=== PATIENT | male | born 1960 | race Caucasian/White ===

== ENCOUNTER 2016-06-07 11:15 | Inpatient (IN) | payer MEDICARE ==
[~2016-06-07] VITALS: Ht 182.9 cm; Wt 116.8 kg
--- NOTE | ~2016-06-07 | HEMODYNAMI ---
PATIENT:DEEJAY LAMB MEDICAL RECORD: [id number] : 56 LOCATION:[address] ADMISSION DATE: 06/07/16 Generatedon:06/08/201615:54 Patient name: DEEJAY LAMB Patient #: [id number] SSN: : 1960 Date of study: 06/08/2016 Page: Of Hemodynamic Procedure Report Patient Data Patient Demographics Procedure consent was obtained First Name: DEEJAY Gender: Male Last Name: ADONIS : 1960 [facility] Initial: RODRÍGUEZ Age: 55 year(s) Patient #: [id number] Race: Unknown Additional ID: [id number] Contact details Address: [address] [place] [address] State: [place] City: [facility] Zip code: [address] Past Medical History Allergies: No known allergies Admission Admission Data Admission Date: 06/07/2016 Admission Time: 11:15 Room #: 2105 Height (in.): 72 BSA: 2.37 (m2) Height (cm.): 182.88 BMI: 34.93 (kg/m2) Weight (lbs.): 257.55 Weight (kg.): 116.82 Lab Results Lab Result Date: 06/08/2016 Lab Result Time: 0:00 Biochemistry Name Units Result Min Max BUN mg/dl 33 --(----)-* 7 18 CK-MB ng/ml 0.9 --(*---)-- 0 3.6 Creatinine mg/dl 1.3 --(---*)-- 0.6 1.3 Creatinine l 56 --(*---)-- 21 215 Kinase Troponin l ng/ml 0.017 --(-*--)-- 0 0.06 CBC Name Units Result Min Max Hematocrit % 39.1 -*(----)-- 42 54 Hemoglobin g/dl 13.2 -*(----)-- 13.5 17.5 Procedure Procedure Types Cath Procedure Diagnostic Procedure LHC LHC w/Coronaries PCI Procedure Coronary Stent Initial Miscellaneous Procedures Moderate Sedation up to 15 minutes Procedure Description Procedure Date Procedure Date: 06/08/2016 Procedure Start Time: 15:39 Procedure End Time: 15:51 Procedure Staff Name Function Raul Ro MD Performing Physician Elis Avendaño RT Monitor Dru Muñoz RN Nurse Agatha Bob RT Scrub Procedure Data Cath Procedure Fluoroscopy Diagnostic fluoroscopy Total fluoroscopy Time: 2.7 time: 2.7 min min Diagnostic fluoroscopy Total fluoroscopy dose: 880 dose: 880 mGy mGy Contrast Material Contrast Material Type Amount (ml) Isovue 300 83 Entry Location Entry Primary Successful Side Size Upsize Upsize Entry Closure Succes sful Closure Location (Fr) 1 (Fr) 2 (Fr) Remarks Device Remarks Femoral Right 5 Fr 6 Fr Exoseal artery Short Estimated blood loss: 10 ml Diagnostic catheters Device Type Used For End Catheter Placement Cordis 5Fr Pigtail Procedure Catheter (MP) Cordis 5Fr JL 4.0 Procedure Catheter (MP) Cordis 5Fr 3DRC Catheter Procedure (MP) Procedure Complications No complications Procedure Medications Medication Administration Route Dosage Oxygen NC 2 l/min Heparin Flush Bag added to field 2 bags (1000units/500ml NS) 0.9% NaCl I.V. 100 ml/hr Lidocaine 2% added to field 20 Versed I.V. 1 mg Fentanyl I.V. 50 mcg Cardizem I.V. drip 15 mg/hr (125mg/125ml NS) Heparin Bolus I.V. 4000 units Hemodynamics Rest BSA: 2.37 (m2) HGB: 13.2 (g/dl) O2 Consumption: Estimated: 322.32 (ml/min) O2 Co nsumption indexed: Estimated:136 (ml/min/m) Pre Cath Intra NCS Post Cath Vital Signs Time Heart Resp SPO2 NIBP (mmHg) Rhythm Pain Sedation Rate (ipm) (%) Status Level (bpm) 15:28:52 113 39 97 119/81(102) A-Fib 0 (11) 10(A) , No pain 15:33:03 100 36 99 107/86(98) A-Fib 0 (11) 10(A) , No pain 15:37:11 87 25 98 112/89(102) A-Fib 0 (11) 10(A) , No pain 15:41:27 126 19 95 92/72(82) A-Fib 0 (11) 10(A) , No pain 15:45:31 80 18 96 96/85(91) NSR 0 (11) 10(A) , No pain 15:49:41 85 18 97 106/67(95) NSR 0 (11) 10(A) , No pain Medications Time Medication Route Dose Verified Delivered Reason Notes Effectiveness by by 15:29:15 Oxygen NC 2 Barak Barak Per physician l/min Steven Harris RN RN 15:29:26 Heparin Flush added 2 Barak Barak used for Bag to bags Steven Harris RN procedure (1000units/500ml RN NS) 15:29:37 0.9% NaCl I.V. 100 Barak Barak Per physician ml/hr Steven Harris RN RN 15:36:36 Lidocaine 2% added 20ml Barak Montoyay for local to vial Steven Harris RN anesthetic field RN 15:38:00 Versed I.V. 1 mg Raul Gonsales for sedation Jayjay Muñoz RN 15:38:05 Fentanyl I.V. 50 Raul Gonsales for sedation mcg Jayjay Muñoz RN 15:39:51 Cardizem I.V. 15 Raul Gonsales Per physician (125mg/125ml NS) drip mg/hr Jayjay Muñoz RN 15:43:51 Heparin Bolus I.V. 4000 Raul Gonsales for verifi ed units Jayjay Muñoz RN anticoagulation with dr ro Procedure Log Time Note 14:57:35 Patient Height : 182.88 cm 14:57:39 Patient Weight : 116.82 kg 15:03:39 Lab Result : Creatinine Kinase 56 l 15:03:39 Lab Result : Troponin l 0.017 ng/ml 15:03:39 Lab Result : CK-MB 0.9 ng/ml 15:03:39 Lab Result : BUN 33 mg/dl 15:03:39 Lab Result : Creatinine 1.3 mg/dl 15:03:39 Lab Result : Hematocrit 39.1 % 15:03:39 Lab Result : Hemoglobin 13.2 g/dl 15:13:02 Barak Harris RN sent for patient. Start room use. 15:13:03 Time tracking: Regular hours 15:13:07 Plan of Care:Hemodynamics will remain stable., Cardiac rhythm will remain stable., Comfort level will be maintained., Respiratory function will remain adequate., Patient/ family verbilizes understanding of procedure., Procedure tolerated without complication., Recovers from procedure without complications.. 15:20:00 Patient received from PCU to CCL 2 Alert and oriented. Tansferred to table in Supine position. 15:20:05 Warm blankets applied, and khanh hugger turned on for patient comfort. 15:20:05 Correct patient and procedure confirmed by team. 15:20:06 Signed procedure consent form obtained from patient. 15:20:07 ECG and BP/O2 sat monitors applied to patient. 15:20:08 Full Disclosure recording started 15:27:38 Vital chart was started 15:27:47 Rhythm: atrial fibrillation 15:28:33 H&P Date Dictated: 06/07/2016 Within 30 days and on chart.. 15:28:34 Pre-procedure instructions explained to patient. 15:28:35 Pre-op teaching completed and patient verbalized understanding. 15:28:36 Family in patients room. 15:28:38 Patient NPO since Midnight. 15:28:43 Patient allergic to No known allergies 15:28:45 Is the patient allergic to Iodine/contrast media? No. 15:28:59 Patient diabetic? Yes. 15:29:00 If diabetic: On Metformin? No 15:29:03 Previous problem with sedation/anesthesia? No ? 15:29:05 Snore? Yes 15:29:06 Sleep apnea? No 15:29:07 Deviated septum? No 15:29:07 Opens mouth fully? Yes 15:29:08 Sticks out tongue? Yes 15:29:10 Airway obstruction? No ? 15:29:14 Dentures? Yes Out 15:29:15 Oxygen 2 l/min NC was administered by Barak Harris RN; Per physician; 15:29:26 Heparin Flush Bag (1000units/500ml NS) 2 bags added to field was administered by Barak Harris RN; used for procedure; 15:29:28 Is patient on blood thinner?Yes 15:29:30 ACC The patient was administered the following blood thiners within the last 24 hours: ACCPlavix 15:29:34 Pre procedure: right dorsailis pedis pulse 1+ Palpable, but thready & weak; easily obliterated 15:29:36 Patient pain scale 0/10 ?. 15:29:37 0.9% NaCl 100 ml/hr I.V. was administered by Barak Harris RN; Per physician; 15::44 IV patent on arrival in right wrist with 0.9% NaCl at [facility] 15:29:51 Right groin area was prepped with chlora-prep and draped in sterile fashion 15::52 Alarms reviewed by R. N. 15::52 Sharps counted by scrub and verified by R.N. 15:30:20 Patient arrived on Cardizem at 5 mg/hr IV drip left wrist 15:30:32 Lab results completed and on chart. 15:30:35 Use device set Femoral Dx 15:30:36 Acist Syringe opened to sterile field. 15:30:37 Bag Decanter opened to sterile field. 15:30:37 Medline Cath Pack opened to sterile field. 15:30:37 Terumo 5Fr [place] Sheath opened to sterile field. 15:30:38 St Mic 260cm J .035 wire opened to sterile field. 15:30:39 Acist Hand Control opened to sterile field. 15:30:39 Acist Manifold opened to sterile field. 15:30:40 Diagnostic Infinity 5Fr Multipack catheter opened to sterile field. 15:30:40 Tegaderm 4 x 4 opened to sterile field. 15:32:49 Physician arrived 15:33:26 --------ALL STOP TIME OUT------ 15:33:27 Final Timeout: patient, procedure, and site verified with staff and physician. All members of the team are in agreement. 15:33:30 Right groin site verified by team. 15:33:47 Sedation plan: IV Moderate Sedation Versed, Fentanyl 15:36:36 Lidocaine 2% 20ml vial added to field was administered by Barak Harris RN; for local anesthetic; 15:37:17 Diagnostic Cath Status : Elective 15:38:00 Versed 1 mg I.V. was administered by Dru Muñoz RN; for sedation; 15:38:05 Fentanyl 50 mcg I.V. was administered by Dru Muñoz RN; for sedation; 15:39:25 Zero performed for pressure channel P1 15:39:31 Zero performed for pressure channel P1 15:39:43 Procedure started. 15:39:47 Local anesthetic to right femoral artery with Lidocaine 2% by Raul Ro MD.INITIAL ACCESS ONLY 15:39:51 Cardizem (125mg/125ml NS) 15 mg/hr I.V. drip was administered by Dru Muñoz RN; Per physician; 15:40:16 A 5 Fr sheath was inserted into the Right Femoral artery 15:40:40 A Cordis 5Fr Pigtail Catheter (MP) was advanced over the wire and used for Procedure. 15:40:43 LV angiography performed. 15:41:01 EF : 40 % 15:41:03 Catheter removed. 15:41:18 A Cordis 5Fr JL 4.0 Catheter (MP) was advanced over the wire and used for Procedure. 15:41:21 LCA angiography performed. 15:42:28 Catheter removed. 15:42:40 A Cordis 5Fr 3DRC Catheter (MP) was advanced over the wire and used for Procedure. 15:43:39 Catheter removed. 15:43:42 Terumo 6Fr [place] Sheath opened to sterile field. 15:43:51 Heparin Bolus 4000 units I.V. was administered by Dru Muñoz RN; for anticoagulation; verified with dr ro 15:43:58 Sheath upsized to a 6 Fr Short. 15:44:14 6 Fr XB 4 guide catheter was inserted over the wire 15:44:35 Cordis 6FR XB 4.0 guide catheter opened to sterile field. 15:44:38 Beltrán Whisper J 300cm 0.014 guide wire opened to sterile field. 15:44:39 ConsortiEXixCompak Inflation Kit opened to sterile field. 15:45:09 Whisper wire advanced. 15:47:19 Wire advanced across lesion. 15:47:51 Inflation Number: 1 A Biofreedom 3.0 x 28 stent was prepped and advanced across the Mid CX. The stent was deployed at 13 SANTIAGO for 0:10 (min:sec). 15:48:13 Cordis 6Fr Exoseal opened to sterile field. 15:48:20 Stent catheter was removed intact over wire. 15:48:21 Balloon removed over the wire. 15:48:21 Wire removed. 15:48:22 Guide catheter removed. 15:48:33 Sheath removed intact; hemostasis achieved with Exoseal to the Right Femoral artery. 15:49:16 Procedure ended.(Physican Out) 15:49:26 Fluoroscopy time 02.70 minutes. 15:49:38 Fluoroscopy dose: 880 mGy 15:49:38 Flurop Dose total: 880 15:49:43 Contrast amount:Isovue 300 83ml. 15:49:45 Sharps counted by scrub and verified by R.N. 15:49:53 Insertion/operative site no bleeding no hematoma. 15:49:55 Post Procedure Pulses reassessed and unchanged 15:50:09 Post-procedure physical assessment completed. ASA score P 2 - A patient with mild systemic disease as per Raul Ro MD. 15:50:12 Post procedure rhythm: sinus rhythm 15:50:15 Estimated blood loss: 10 ml 15:50:18 Post procedure instruction explained to patient.Patient verbalizes understanding. 15:50:37 Procedure type changed to Cath procedure, Diagnostic procedure, LHC, LHC w/Coronaries, PCI procedure, Coronary Stent Initial, Miscellaneous Procedures, Moderate Sedation up to 15 minutes 15:50:38 Procedure and supply charges have been captured, reviewed, submitted and are correct. 15:51:04 Procedure Complication : No complications 15:51:06 Vital chart was stopped 15:51:07 See physician's report for complete and final results. 15:51:11 Report given to [place]. 15:51:14 Patient transfered to [place] [facility] with Bed. 15:51:17 Procedure ended. 15:51:17 Full Disclosure recording stopped 15:51:19 End room use (Document Last) Intervention Summary Intervention Notes Time ActionType Lesion and Equipment Action# Pressure Duration Attributes Used 15:47:51 Place stent Mid CX Biofreedom 1 13 00:10 3.0 x 28 stent Device Usage Item Name Manufacture Quantity Catalog Hospital Part Current Minimal Lot# / Number Charge Number Stock Stock Serial# Code Acist Acist 1 35192 165352 047450 840339 20 Syringe Medical Systems Inc Bag Microtek 1 2002S [id number] 67205 007812 5 ImpulseFlyer Inc. Medline Cardinal 1 [id number] 798614 47158 899952 5 Cath Pack Health Terumo 5Fr Terumo 1 [id number] 180125 389106 877487 [address] Mic St Mic 1 [id number] 019032 678894 632419 30 260cm J .035 wire Acist Hand Acist 1 75799 964608 888625 775585 5 Control Medical Systems Inc Acist Acist 1 99421 322319 937203 140171 5 Manifold Medical Systems Inc Diagnostic Cardinal 1 [id number] 393602 36094 303042 30 Infinity Health 5Fr Multipack catheter Tegaderm 4 3M 1 1626W 039136 273753 948552 5 x 4 Cordis 5Fr Cardinal 1 208145 5 Pigtail Health Catheter (MP) Cordis 5Fr Cardinal 1 827860 5 JL 4.0 Health Catheter (MP) Cordis 5Fr Cardinal 1 [id number] 5 3DRC Health Catheter (MP) Terumo 6Fr Terumo 1 [id number] 103334 897499 831228 40 [place] Sheath Cordis 6FR Cardinal 1 [id number] 297396 670873 442254 2 XB 4.0 Health guide catheter Beltrán Beltrán 1 [id number] 939804 737270 684619 5 Whisper J Vascular 300cm 0.014 guide wire Merit Merit 1 [id number] 701727 328367 504248 15 MediciNova Medical Inflation Kit Biofreedom Biosensors 1 [id number] 019904 032443 5 [id number] 3.0 x 28 [place] SA stent Cordis 6Fr Cardinal 1 [id number] 383623 800529 235128 10 [facility] Smart Picture Tech Signature Audit [place] Stage Time Signature Unsigned Intra-Procedure 06/08/2016 Elis Avendaño 3:54:08 PM RT(R) Signatures Monitor : Elis Avendaño Signature : RT Date : Time : [facility] [address] [place] [address]
--- NOTE | ~2016-06-07 | HEMODYNAMI ---
PATIENT:DEEJAY LAMB MEDICAL RECORD: [id number] : 56 LOCATION:[address] ADMISSION DATE: 06/07/16 Generatedon:06/09/20168:47 Patient name: DEEJAY LAMB Patient #: [id number] SSN: : 1960 Date of study: 06/09/2016 Page: Of Hemodynamic Procedure Report Patient Data Patient Demographics Procedure consent was obtained First Name: DEEJAY Gender: Male Last Name: ADONIS : 1960 [facility] Initial: RODRÍGUEZ Age: 55 year(s) Patient #: [id number] Race: Additional ID: [id number] Contact details Address: [address] [place] [address] State: [place]: [facility] [place] code: [address] Past Medical History Allergies: No known allergies Admission Admission Data Admission Date: 06/07/2016 Admission Time: 11:15 Room #: 2105 Height (in.): 72 BSA: 2.37 (m2) Height (cm.): 182.88 BMI: 34.93 (kg/m2) Weight (lbs.): 257.55 Weight (kg.): 116.82 Lab Results Lab Result Date: 06/09/2016 Lab Result Time: 0:00 Biochemistry Name Units Result Min Max BUN mg/dl 27 --(----)-* 7 18 Creatinine mg/dl 1.2 --(---*)-- 0.6 1.3 CBC Name Units Result Min Max Hematocrit % 37.4 *-(----)-- 42 54 Hemoglobin g/dl 12.4 *-(----)-- 13.5 17.5 Procedure Procedure Types Cath Procedure PCI Procedure Coronary Stent Initial Miscellaneous Procedures Moderate Sedation up to 15 minutes Procedure Description Procedure Date Procedure Date: 06/09/2016 Procedure Start Time: 8:35 Procedure End Time: 8:46 Procedure Staff Name Function Raul Ro MD Performing Physician Joel Summers RT Scrub Barak Harris RN Nurse Lawanda Mcgee RT Monitor Procedure Data Cath Procedure Fluoroscopy Diagnostic fluoroscopy Total fluoroscopy Time: 1.2 time: 1.2 min min Diagnostic fluoroscopy Total fluoroscopy dose: 220 dose: 220 mGy mGy Contrast Material Contrast Material Type Amount (ml) Isovue 300 32 Entry Location Entry Primary Successful Side Size Upsize Upsize Entry Closure Succes sful Closure Location (Fr) 1 (Fr) 2 (Fr) Remarks Device Remarks Femoral Left 6 Fr Exoseal artery Short Estimated blood loss: 5 ml Procedure Complications No complications Procedure Medications Medication Administration Route Dosage Oxygen NC 2 l/min Heparin Flush Bag added to field 2 bags (1000units/500ml NS) 0.9% NaCl I.V. 100 ml/hr Plavix P.O. 75 mg Fentanyl I.V. 50 mcg Versed I.V. 1 mg Heparin Bolus I.V. 4000 units Hemodynamics Rest BSA: 2.37 (m2) HGB: 12.4 (g/dl) O2 Consumption: Estimated: 294.37 (ml/min) O2 Co nsumption indexed: Estimated:124.21 (ml/min/m) Heart Rate: 86 (bpm) Snapshots Pre Cath Intra NCS Post Cath Vital Signs Time Heart Resp SPO2 etCO2 [id number] NIBP (mmHg) Rhythm Pain Sedation Rate (ipm) (%) (mmHg) (mmHg) Status Level (bpm) 8:23:41 86 19 98 0 0 152/112(137) NSR 0 (11) 10(A) , No pain 8:28:09 80 19 98 0 0 150/106(128) NSR 0 (11) 10(A) , No pain 8:32:34 83 17 96 0 0 139/98(114) NSR 0 (11) 10(A) , No pain 8:36:56 88 18 91 0 0 134/86(111) NSR 0 (11) 9(A) , No pain 8:41:16 81 17 90 0 0 134/95(103) NSR 0 (11) 9(A) , No pain 8:45:34 84 16 90 0 0 130/87(105) NSR 0 (11) 9(A) , No pain Medications Time Medication Route Dose Verified Delivered Reason Notes Effectiveness by by 8:22:42 Oxygen NC 2 Barak Cancino Per physician l/min Steven Harris RN RN 8:22:50 Heparin Flush added 2 Barak Cancino used for Bag to bags Steven Harris RN procedure (1000units/500ml field RN NS) 8:23:03 0.9% NaCl I.V. 100 Barak Cancino Per physician ml/hr Steven Harris RN RN 8:24:35 Plavix P.O. 75 mg Barak Cancino for Steven Harris RN antiplatelet RN therapy 8:33:25 Fentanyl I.V. 50 Barak Barak for sedation mcg Steven Harris RN RN 8:33:32 Versed I.V. 1 mg Barak Cancino for sedation Steven Harris RN RN 8:36:58 Heparin Bolus I.V. 4000 Barak Cancino for units Steven Harris RN anticoagulation drop tester Log Time Note 7:56:28 Patient Height : 72 cm 7:56:28 Patient Weight : 257.55 kg 8:00:29 Joel Bluenatalia RT(R) sent for patient. Start room use. 8:01:36 Time tracking: Regular hours 8:01:40 Plan of Care:Hemodynamics will remain stable., Cardiac rhythm will remain stable., Comfort level will be maintained., Respiratory function will remain adequate., Patient/ family verbilizes understanding of procedure., Procedure tolerated without complication., Recovers from procedure without complications.. 8:11:58 Patient received from PCU to CCL 1 Alert and oriented. Tansferred to table in Supine position. 8:12:00 Warm blankets applied, and khanh hugger turned on for patient comfort. 8:12:00 Correct patient and procedure confirmed by team. 8:12:01 Signed procedure consent form obtained from patient. 8:12:02 ECG and BP/O2 sat monitors applied to patient. 8:12:03 Full Disclosure recording started 8:22:18 Vital chart was started 8:22:42 Oxygen 2 l/min NC was administered by Barak Harris RN; Per physician; 8:22:50 Heparin Flush Bag (1000units/500ml NS) 2 bags added to field was administered by Barak Harris RN; used for procedure; 8:23:03 0.9% NaCl 100 ml/hr I.V. was administered by Barak Harris RN; Per physician; 8:23:38 Baseline sample Acquired. 8:23:41 Rhythm: sinus rhythm 8:23:48 H&P Date Dictated: 06/08/2016 Within 30 days and on chart.. 8:23:49 Pre-procedure instructions explained to patient. 8:23:50 Pre-op teaching completed and patient verbalized understanding. 8:23:51 Family in waiting room. 8:23:53 Patient NPO since Midnight. 8:23:59 Is the patient allergic to Iodine/contrast media? No. 8:24:00 Is patient on blood thinner?Yes 8:24:02 ACC The patient was administered the following blood thiners within the last 24 hours: ACCPlavix 8:24:35 Plavix 75 mg P.O. was administered by Barak Harris RN; for antiplatelet therapy; 8:24:36 Patient diabetic? Yes. 8:25:12 If diabetic: On Metformin? No 8:25:16 Previous problem with sedation/anesthesia? No ? 8:25:17 Snore? Yes 8:25:18 Sleep apnea? No 8:25:19 Deviated septum? No 8:25:20 Opens mouth fully? Yes 8:25:20 Sticks out tongue? Yes 8:25:22 Airway obstruction? No ? 8:25:25 Dentures? Yes Out 8:25:29 Pre procedure: left dorsailis pedis pulse 1+ Palpable, but thready & weak; easily obliterated 8:25:31 Patient pain scale 0/10 ?. 8:25:42 IV patent on arrival in right wrist with 0.9% NaCl at KVO. 8:25:51 Lab results completed and on chart. 8:27:30 Lab Result : BUN 27 mg/dl 8:27:30 Lab Result : Creatinine 1.2 mg/dl 8:27:30 Lab Result : Hemoglobin 12.4 g/dl 8:27:30 Lab Result : Hematocrit 37.4 % 8:27:37 Left groin area was prepped with chlora-prep and draped in sterile fashion 8:27:38 Alarms reviewed by R. N. 8:27:39 Sharps counted by scrub and verified by R.N. 8:27:42 Use device set Femoral PCI 8:27:43 Acist Syringe opened to sterile field. 8:27:44 Acist Hand Control opened to sterile field. 8:27:44 Bag Decanter opened to sterile field. 8:27:44 Medline Cath Pack opened to sterile field. 8:27:45 Terumo 6Fr Somerset Sheath opened to sterile field. 8:27:45 St Mic 260cm J .035 wire opened to sterile field. 8:27:45 Merit BasixCompak Inflation Kit opened to sterile field. 8:27:46 Acist Manifold opened to sterile field. 8:27:46 Tegaderm 4 x 4 opened to sterile field. 8:29:36 Physician paged 8:30:43 Zero performed for pressure channel P1 8:31:11 Final Timeout: patient, procedure, and site verified with staff and physician. All members of the team are in agreement. 8:31:14 Left groin site verified by team. 8:31:17 Physical assessment completed. ASA score P 2 - A patient with mild systemic disease as per Raul Ro MD. 8:31:37 Sedation plan: IV Moderate Sedation Versed, Fentanyl 8:33:25 Fentanyl 50 mcg I.V. was administered by Barak Harris RN; for sedation; 8:33:32 Versed 1 mg I.V. was administered by Barak Harris RN; for sedation; 8:35:13 Procedure started. 8:35:17 Local anesthetic to left femerol artery with Lidocaine 2% by Raul Ro MD.INITIAL ACCESS ONLY 8:36:09 A 6 Fr Short sheath was inserted into the Left Femoral artery 8:36:22 6 Fr AR 2.0 guide catheter was inserted over the wire 8:36:58 Heparin Bolus 4000 units I.V. was administered by Barak Harris RN; for anticoagulation; 8:37:37 Whisper wire advanced. 8:39:50 Inflation Number: 1 A Biofreedom 3.0 x 28 stent was prepped and advanced across the Mid RCA. The stent was deployed at 13 SANTIAGO for 0:11 (min:sec). 8:40:03 Stent catheter was removed intact over wire. 8:40:04 Wire removed. 8:40:04 Guide catheter removed. 8:40:16 Cordis 6Fr Exoseal opened to sterile field. 8:40:23 Sheath removed intact; hemostasis achieved with Exoseal to the Left Femoral artery. 8:40:25 Procedure ended.(Physican Out) 8:40:42 Fluoroscopy time 01.20 minutes. 8:40:46 Flurop Dose total: 220 8:40:46 Fluoroscopy dose: 220 mGy 8:40:50 Contrast amount:Isovue 300 32ml. 8:40:51 Sharps counted by scrub and verified by R.N. 8:40:57 Insertion/operative site no bleeding no hematoma. 8:41:00 Post-op/insertion site Left Femoral artery dressed using a 4 x 4 and Tegaderm. 8:43:10 Post left femerol artery:stable, clean and dry 8:43:12 Post Procedure Pulses reassessed and unchanged 8:43:14 Post-procedure physical assessment completed. ASA score P 2 - A patient with mild systemic disease as per Raul Ro MD. 8:43:17 Post procedure rhythm: unchanged. 8:43:19 Estimated blood loss: 5 ml 8:43:21 Post procedure instruction explained to patient.Patient verbalizes understanding. 8:43:22 Patient needs reinforcement of post procedure teaching. 8:43:29 Procedure type changed to Cath procedure, PCI procedure, Coronary Stent Initial, Miscellaneous Procedures, Moderate Sedation up to 15 minutes 8:43:34 Procedure Complication : No complications 8:43:36 See physician's report for complete and final results. 8:44:12 Medtronic Launcher 6Fr AR 2.0 guide catheter opened to sterile field. 8:44:40 Beltrán Whisper J 300cm 0.014 guide wire opened to sterile field. 8:44:59 Procedure and supply charges have been captured, reviewed, submitted and are correct. 8:45:40 Vital chart was stopped 8:45:42 Report given to PCU. 8:45:50 Patient transfered to PCU with Bed. 8:46:04 Procedure ended. 8:46:04 Full Disclosure recording stopped 8:46:08 End room use (Document Last) Intervention Summary Intervention Notes Time ActionType Lesion and Equipment Action# Pressure Duration Attributes Used 8:39:50 Place stent Mid RCA Biofreedom 1 13 00:11 3.0 x 28 stent Device Usage Item Name Manufacture Quantity Catalog Hospital Part Current Minimal Lot# / Number Charge Number Stock Stock Serial# Code Acist Acist 1 40637 743776 415981 641084 20 Syringe Medical Systems Inc Acist Hand Acist 1 29438 658099 440123 199259 5 Control Grockit Inc Bag Microtek 1 2002S 314529 91220 827509 5 DecTok3n Medical Inc. Medline Cardinal 1 [id number] 556794 64523 752911 5 Cath Pack Health Terumo 6Fr Terumo 1 [id number] 980392 175705 716873 [address] Mic 1 110584 077935 850424 228355 30 260cm J .035 wire Merit Merit 1 [id number] 621631 900305 942940 15 BasixCompak Medical Inflation Kit Acist Acist 1 32998 242923 195212 973994 5 Sckipio Technologies Medical Systems Inc Tegaderm 4 3M 1 1626W 578499 801369 272947 5 x 4 Biofreedom Biosensors 1 [id number] 577045 260190 5 [id number] 3.0 x 28 Europe SA stent Cordis 6Fr Cardinal 1 EX600 467682 371934 582544 10 Exoseal Health Medtronic Medtronic 1 [id number] 404813 42202 058544 1 Launcher 6Fr AR 2.0 guide catheter Beltrán Beltrán 1 [id number] 203410 401254 127497 5 [facility] Vascular 300cm 0.014 guide wire Signature Audit [place] Stage Time Signature Unsigned Intra-Procedure 06/09/2016 Lawanda 8:47:02 AM Counts RT(R) Signatures Monitor : Lawanda Signature : Counts RT Date : Time : [place] [id number] [place] [address]
--- NOTE | 2016-06-07 11:40 | NUR ---
PT RECEIVED TO ROOM 2105, VIA WHEELCHAIR, PT ORIENTED TO ROOM AND CALL LIGHT. WILL ASSESS PT AND START PLAN OF CARE.
[2016-06-07 12:14] VITALS: BP 112/81
[2016-06-07 12:18] LABS: BASOPHILS 0.1 % (0-2); EOSINOPHILS 0 % (0-7); HEMATOCRIT 42.9 % (42.0-54.0); HEMOGLOBIN 14.8 g/dL (13.5-17.5); IMMATURE GRANULOCYTES 1.2 % (0-5); LYMPHOCYTES 11.5 % (15-50); MCH 30.1 pg (26.0-34.0); MCHC 34.5 g/dL (31.0-37.0); MCV 87.2 fL (80.0-100.0); MEAN PLATELET VOLUME 12.2 fL (7.4-10.4); MONOCYTES 4.8 % (2-11); NEUTROPHILS 82.4 % (40-80); PLATELET COUNT 184 10x3/uL (130-400); RBC 4.92 10x6/uL (4.20-6.10); RDW 13.4 % (11.5-14.5); WBC 19.6 10x3/uL (4.8-10.8)
[2016-06-07 12:24] LABS: KETONE - SERUM SMALL mg/dL (NEGATIVE)
--- NOTE | 2016-06-07 12:28 | NUR ---
IV ACCESS-22 GAUGE INSERTED IN RIGHT HAND FOR ACCESS. USHA THOMPSON RN
[2016-06-07 12:44] LABS: ALBUMIN 2.2 g/dL (3.4-5.0); ALKALINE PHOSPHATASE 185 U/L (46-116); ALT (SGPT) 84 U/L (10-68); BILIRUBIN - TOTAL 1.66 mg/dL (0.2-1.3); CALC OSMOLALITY 279 mosm/kg (275-300); CALCIUM 8.8 mg/dL (8.5-10.1); CARBON DIOXIDE 16.4 mmol/L (21.0-32.0); CHLORIDE - SERUM 89 mmol/L (98-107); CREATININE - SERUM 1.6 mg/dL (0.6-1.3); POTASSIUM - SERUM 3.9 mmol/L (3.5-5.1); PROTEIN - SERUM 7.8 g/dL (6.4-8.2); SODIUM 126 mmol/L (136-145); THYROID STIMULATING HORMONE 1.85 uIU/mL (0.36-3.74); UREA NITROGEN 36 mg/dL (7-18); eGFR NON AFRICAN AMERICAN 48 mL/min (90-120)
[2016-06-07 12:49] LABS: GLUCOSE 435 mg/dL (74-106)
--- NOTE | 2016-06-07 13:36 | NUR ---
CALLED DR. CUNNINGHAM'S OFFICE AND SPOKE WITH BHAVIN, GAVE HER THE RESULTS FROM THE ABG'S AND CRITICAL GLUCOSE OF 465. WAITING ON HER TO CALL BACK WITH NEW ORDERS.
--- NOTE | 2016-06-07 13:52 | NUR ---
RECEIVED CALL BACK FROM BHAVIN CUNNINGHAM'S NURSE. NEW ORDER FOR 10UNITS OF INSULIN ONE TIME ORDER.
--- NOTE | 2016-06-07 14:13 | NUR ---
ADMINISTERED 10 UNITS OF HUMALOG ONE TIME DOSE FOR BLOOD SUGAR OF 458 PER 'S ORDER. PT IN BED, DENIES ANY NEEDS AT THIS TIME. CALL LIGHT IN REACH, NAD NOTED, WILL CONTINUE TO MONITOR.
[2016-06-07 14:15] VITALS: BP 112/81; BMI 34.9
--- NOTE | 2016-06-07 14:53 | NUR ---
CALLED [employer] AND ASKED THEM FOR AN SCD MACHINE FOR ROOM 2104.
[2016-06-07 15:06] LABS: APPEARANCE CLEAR (CLEAR); BILIRUBIN NEGATIVE (NEGATIVE); COLOR YELLOW (YELLOW); GLUCOSE 1000 mg/dL (NEGATIVE); KETONE MODERATE mg/dL (NEGATIVE); LEUKOCYTE ESTERASE TRACE (NEGATIVE); NITRITE NEGATIVE (NEGATIVE); PROTEIN TRACE mg/dL (NEGATIVE); SPECIFIC GRAVITY 1.015 (1.005-1.020); UROBILINOGEN NORMAL (NORMAL)
[2016-06-07 15:07] LABS: BACTERIA MANY /hpf (NONE SEEN); WHITE CELLS - URINE >50 /hpf (0-5)
[2016-06-07 15:54] VITALS: BP 120/58
[2016-06-07 16:48] VITALS: BP 128/65
[2016-06-07 20:00] VITALS: BP 135/84
--- NOTE | 2016-06-07 21:03 | NUR ---
PT LYING IN BED, AWAKE, ALERT, ORIENTED, DENIES ANY ACUTE NEEDS. PT IS AWARE THAT HE IS NOT ALLOWED TO HAVE ANY FREE WATER AT THIS TIME. WILL MONITOR HIS INPUT CLOSELY. BED LOW, CALL LIGHT IN REACH, SIDE RAILS X 2, HOB 30 DEGREES.
--- NOTE | 2016-06-07 23:34 | NUR ---
PT REQUESTING SOMETHING FOR SLEEP, HE IS HAVING A DIFFICULT TIME TRYING TO SLEEP HERE. HAVE PAGED DR. BARRY JIRA DEVELOPER FOR DR. CUNNINGHAM.
[2016-06-08] VITALS: BP 126/78
--- NOTE | 2016-06-08 00:40 | NUR ---
DR. BARRY RETURNED CALL, DID AUTHORIZE TIZANADINE 2MG PO Q HS PRN PER PATIENT REQUEST. PT STATES HE DID TAKE TIZANADINE TO HELP HIM SLEEP BEFORE. CONTINUE TO MONITOR CLOSELY.
[2016-06-08 04:00] VITALS: BP 130/80
[2016-06-08 04:25] LABS: BASOPHILS 0.3 % (0-2); EOSINOPHILS 0.2 % (0-7); HEMATOCRIT 39.1 % (42.0-54.0); HEMOGLOBIN 13.2 g/dL (13.5-17.5); IMMATURE GRANULOCYTES 1.3 % (0-5); LYMPHOCYTES 8.6 % (15-50); MCH 29.3 pg (26.0-34.0); MCHC 33.8 g/dL (31.0-37.0); MCV 86.9 fL (80.0-100.0); MEAN PLATELET VOLUME 11.7 fL (7.4-10.4); MONOCYTES 11.7 % (2-11); NEUTROPHILS 77.9 % (40-80); PLATELET COUNT 173 10x3/uL (130-400); RDW 13.3 % (11.5-14.5)
[2016-06-08 04:28] LABS: WBC 14.6 10x3/uL (4.8-10.8)
[2016-06-08 04:51] LABS: ANION GAP 16.4 mmol/L (8-16); CALCIUM 7.7 mg/dL (8.5-10.1); CARBON DIOXIDE 22.3 mmol/L (21.0-32.0); CREATININE - SERUM 1.3 mg/dL (0.6-1.3); POTASSIUM - SERUM 3.7 mmol/L (3.5-5.1)
[2016-06-08 08:00] VITALS: BP 116/62
--- NOTE | 2016-06-08 10:51 | NUR ---
ALERT AND ORIENTED X4. EKG COMPLETE ON CHART. INITIATE TELEMETRY MONITORING. 163bpm UNCONTROLLED A-FIB WITH RVR. DENIES PAIN. DENIES SOB. BATH AND LINEN CHANGE COMPLETE. CONTINUE PLAN OF CARE AND SAFETY PRECAUTIONS.
[2016-06-08 12:00] VITALS: BP 100/59
--- NOTE | 2016-06-08 12:11 | NUR ---
ALERT AND ORIENTED X4. DENIES PAIN OR SOB. SECOND IV SITED FOR CARDIZEM DRIP @ 5mL/HR PER . SECOND IV 20G RT WRIST. SUCCESSFUL X3 ATTEMPTS. 155bpm UNCONTROLLED A-FIB WITH RVR ON TELEMETRY. CARDIOLOGY CONSULTED PER . DENIES ANY NEEDS. CONTINUE PLAN OF CARE AND SAFETY PRECAUTIONS.
--- NOTE | 2016-06-08 12:31 | NUR ---
IV ACCESS-20 GAUGE INSERTED IN RIGHT WRIST FOR ACCESS. USHA THOMPSON RN
[2016-06-08 13:14] LABS: BASOPHILS 0.5 % (0-2); EOSINOPHILS 0.3 % (0-7); HEMATOCRIT 44.3 % (42.0-54.0); HEMOGLOBIN 15.3 g/dL (13.5-17.5); IMMATURE GRANULOCYTES 2.7 % (0-5); LYMPHOCYTES 12.9 % (15-50); MCH 29.8 pg (26.0-34.0); MCHC 34.5 g/dL (31.0-37.0); MCV 86.4 fL (80.0-100.0); MEAN PLATELET VOLUME 11.5 fL (7.4-10.4); MONOCYTES 11.2 % (2-11); NEUTROPHILS 72.4 % (40-80); RBC 5.13 10x6/uL (4.20-6.10); RDW 13.3 % (11.5-14.5)
[2016-06-08 13:15] VITALS: Ht 182.9 cm; Wt 116.8 kg
[2016-06-08 13:17] LABS: PLATELET COUNT 240 10x3/uL (130-400); WBC 19.2 10x3/uL (4.8-10.8)
[2016-06-08 14:10] LABS: CALC OSMOLALITY 279 mosm/kg (275-300); CALCIUM 8.2 mg/dL (8.5-10.1); CARBON DIOXIDE 21.7 mmol/L (21.0-32.0); CHLORIDE - SERUM 97 mmol/L (98-107); CREATININE - SERUM 1.3 mg/dL (0.6-1.3); GLUCOSE 240 mg/dL (74-106); POTASSIUM - SERUM 3.4 mmol/L (3.5-5.1); SODIUM 133 mmol/L (136-145); UREA NITROGEN 29 mg/dL (7-18); eGFR NON AFRICAN AMERICAN 60 mL/min (90-120)
[2016-06-08 16:00] VITALS: BP 105/66
--- NOTE | 2016-06-08 16:27 | NUR ---
RETURN TO ROOM VIA BED. BP-105/66, O2 SAT-99% 3L, P-83 SINUS RHYTHM ON TELEMETRY. RT GROIN DRESSING CLEAN DRY INTACT. NO HEMATOMA. NO BLEEDING. REMAIN FLAT UNTIL 1999 TONIGHT. PULSES PALPABLE BILATERALLY. DENIES PAIN. CARDIZEM DRIP INCREASES DURING LANDSCAPE PAINTER TO 15ml/HR. CONVERT FROM UNCONTROLLED A-FIB WITH RVR TO SINUS RHYTHM BEFORE RETURNING TO ROOM. AFTER SECOND DOSE OF SOTALOL ADMINISTERED THAT IS SCEDULED AT 2100 06/08/16, DISCONTINUE CARDIZEM DRIP PER . PLAN TO RETURN TO LANDSCAPE PAINTER TOMORROW. CONTINUE PLAN OF CARE AND SAFETY PRECAUTIONS.
--- NOTE | 2016-06-08 18:18 | NUR ---
ALERT AND ORIENTED X4. REMAINS FLAT POST CATH ANOTHER 2HRS. CONSENT FOR CATH 06/09/16 SIGNED ON CHART. BP-99/66, P-82bpm SINUS RHYTHM. DENIES ANY NEEDS. RT GROIN DRESSING CLEAN DRY INTACT. FREE FROM BLEEDING. NO HEMATOMA. PULSES PALPABLE BILATERALLY. CONTINUE PLAN OF CARE. PREPARE HAND OFF REPORT. BED LOCKED AND LOW. CALL LIGHT IN REACH. TWO SIDERAILS UP.
[2016-06-08 20:00] VITALS: BP 109/48
--- NOTE | 2016-06-08 21:46 | NUR ---
IV DILTIAZEM STOPPED AND D/C'D PER ORDER. PT HAS RECEIVED HIS 21:00 BETAPACE. WE DISCUSSED S/S OF DYSRHYTHMIA, AND PT AGREES TO NOTIFY ME WITH ANY CHANGES. WILL CONTINUE TO MONITOR CLOSELY.
[2016-06-09] VITALS: BP 95/51
[2016-06-09 04:00] VITALS: BP 108/95
--- NOTE | 2016-06-09 04:08 | NUR ---
PT LYING IN BED ON LEFT SIDE, EYES CLOSED, RESPIRATIONS EVEN AND UNLABORED. PT EASILY ROUSABLE TO VERBAL STIMULI. CONTINUE TO MONITOR CLOSELY. BED LOW, CALL LIGHT IN REACH, SIDE RAILS X 2, HOB 20 DEGREE.
[2016-06-09 05:13] LABS: BASOPHILS 0.3 % (0-2); EOSINOPHILS 0.6 % (0-7); HEMATOCRIT 37.4 % (42.0-54.0); HEMOGLOBIN 12.4 g/dL (13.5-17.5); IMMATURE GRANULOCYTES 3.8 % (0-5); LYMPHOCYTES 15.4 % (15-50); MCH 29.2 pg (26.0-34.0); MCHC 33.2 g/dL (31.0-37.0); MEAN PLATELET VOLUME 11.8 fL (7.4-10.4); MONOCYTES 10.7 % (2-11); NEUTROPHILS 69.2 % (40-80); PLATELET COUNT 205 10x3/uL (130-400); RBC 4.25 10x6/uL (4.20-6.10); RDW 13.6 % (11.5-14.5)
[2016-06-09 05:24] LABS: WBC 10.8 10x3/uL (4.8-10.8)
[2016-06-09 05:40] LABS: ALBUMIN 1.9 g/dL (3.4-5.0); BILIRUBIN - TOTAL 1.17 mg/dL (0.2-1.3); CARBON DIOXIDE 23.9 mmol/L (21.0-32.0); CREATININE - SERUM 1.2 mg/dL (0.6-1.3); MAGNESIUM - SERUM 2.1 mg/dL (1.8-2.4); POTASSIUM - SERUM 3.9 mmol/L (3.5-5.1); PROTEIN - SERUM 6.4 g/dL (6.4-8.2)
--- NOTE | 2016-06-09 08:09 | NUR ---
AM ROUNDS - 709 - PT IN BED ON BACK. RECONNECTED NS WITH 10MEQ K+ TO RIGHT HAND. PLACE 02 WITH 2 L VIA NC BACK ON. RIGHT WRIST, SL. MONITOR SHOWING SR, HR 81. WILL CONTINUE TO MONITOR. 804 - PREOP PT FOR HEART CATH. 809- PT GOING FOR HEART CATH VIA BED.
[2016-06-09 08:16] VITALS: BP 140/92
--- NOTE | 2016-06-09 09:05 | NUR ---
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 PPP AND STRONG. LAYING FALT X 4 HOURS. IV OF NS INFUSING TO RIGHT ARM AT 100 CC/HR. PLACED BACK ON HEART MONITOR, ON O2 AT 2L PER NC. DENIES NEEDS. WILL MONITOR.
[2016-06-09 12:32] VITALS: BP 98/62
--- NOTE | 2016-06-09 12:58 | NUR ---
SET PT IN IN THE BED ABOUT 15 DEGREES. DRESSING FRON HEART CATH IN LEFT GROIN IS INTACT AND NO VISIBLE DRAINAGE. WILL CONTINUE TO MONITOR.
--- NOTE | 2016-06-09 16:28 | NUR ---
Patient Name: DEEJAY LAMB Admission Status: Urgent Accout number: [id number] Admission Date: 06-07-2016 : 1960 Admission Diagnosis:ANGINA PECTORIS, UNSPECIFIED Attending: DUNIA Current LOS: 2 Anticipated DC Date: 06-09-2016 Planned Disposition: Home Primary Insurance: MEDICARE A & B Discharge Planning Comments: * Is the patient Alert and Oriented? Yes 0 * How many steps to enter\exit or inside your home? 4 0 * PCP DR. CUNNINGHAM 0 * Pharmacy [facility]. 0 * Preadmission Environment Home Alone 0 * ADLs Independent 0 * Equipment None 0 * Other Equipment NO MEDICAL EQUIPMENT PROVIDER PREFERENCE 0 * List name and contact numbers for known caregivers / representatives who currently or will assist patient after discharge: MAYRA LAMB, SPOUSE, 0 * Community resources currently utilized None 0 * Please name any agencies selected above. NONE 0 * Additional services required to return to the preadmission environment? No 0 * Can the patient safely return to the preadmission environment? Yes 0 * Has this patient been hospitalized within the prior 30 days at any hospital? No 0 CM MET WITH PT IN ROOM TO DISCUSS DISCHARGE PLANNING AND NEEDS. PT REPORTS LIVING AT HOME INDEPENDENTLY AND ALONE. PT HAS NO MEDICAL EQUIPMENT AND NO OUTSIDE SERVICES ASSISTING IN THE HOME. CM DISCUSSED AVAILABILITY OF HOME HEALTH, REHAB SERVICES AND MEDICAL EQUIPMENT. PT DENIES DISCHARGE NEEDS, REPORTS HE WILL BE DRIVING HIMSELF HOME AT DISCHARGE, HIS CAR IS PARKED AT DR. CUNNINGHAM'S OFFICE ACROSS THE [address]RE[address]. PT REPORTS HE HAS NO GLUCOMETER AT HOME AND MAY NEED ONE TO KEEP CHECK ON HIS SUGAR. IMPORTANT MESSAGE FROM MEDICARE PROVIDED AND EXPLAINED. PT REQUESTING PRESCRIPTION FOR GLUCOMETER AND SUPPLIES. CM TO FOLLOW AND ASSIST NEEDED. Student Financial Services Counselor: Best Dixon
[2016-06-09 16:42] VITALS: BP 137/95
--- NOTE | 2016-06-09 19:30 | NUR ---
ALERT/AWAKE ORIENTED X 4. ASSESS RT AND LT GROIN DRSG C/D/I. IV IN R WRIST AND R HAND INTACT SL. DENIES PAIN OR ANY NEEDS. CALL LIGHT AND BEDSIDE TABLE WITH PERSONAL ITEMS IN REACH.
[2016-06-09 20:00] VITALS: BP 156/87
--- NOTE | 2016-06-09 21:10 | NUR ---
ADMIN SCHED MEDS AND HUMALOG 2 UNITS SC FOR BS 169. REQUESTED SOME ICE TEA. DENIES PAIN OR ANY DISCOMFORTS.
[2016-06-10] VITALS: BP 159/90
--- NOTE | 2016-06-10 03:10 | NUR ---
RESTING ON LEFT SIDE WITH EYES CLOSED. RR 18 EVEN U/L. NO S/S OF PAIN OR DISCOMFORT. BED IS LOW, SR UP X2, CALL LIGHT IN REACH.
[2016-06-10 04:00] VITALS: BP 132/97
[2016-06-10 06:11] LABS: BASOPHILS 0.3 % (0-2); EOSINOPHILS 0.5 % (0-7); HEMATOCRIT 36.6 % (42.0-54.0); HEMOGLOBIN 12.1 g/dL (13.5-17.5); IMMATURE GRANULOCYTES 5.6 % (0-5); LYMPHOCYTES 11.5 % (15-50); MCH 29.2 pg (26.0-34.0); MCHC 33.1 g/dL (31.0-37.0); MCV 88.2 fL (80.0-100.0); MEAN PLATELET VOLUME 11.4 fL (7.4-10.4); MONOCYTES 9.8 % (2-11); NEUTROPHILS 72.3 % (40-80); PLATELET COUNT 238 10x3/uL (130-400); RBC 4.15 10x6/uL (4.20-6.10); RDW 13.9 % (11.5-14.5); WBC 11.8 10x3/uL (4.8-10.8)
[2016-06-10 06:35] LABS: ALBUMIN 1.8 g/dL (3.4-5.0); ALKALINE PHOSPHATASE 182 U/L (46-116); ALT (SGPT) 88 U/L (10-68); BILIRUBIN - DIRECT 0.35 mg/dL (0.00-0.30); BILIRUBIN - INDIRECT 0.55 mg/dL (0.00-1.00); CALCIUM 7.9 mg/dL (8.5-10.1); CARBON DIOXIDE 24.3 mmol/L (21.0-32.0); CHLORIDE - SERUM 103 mmol/L (98-107); CREATININE - SERUM 0.9 mg/dL (0.6-1.3); GLUCOSE 192 mg/dL (74-106); MAGNESIUM - SERUM 1.8 mg/dL (1.8-2.4); PHOSPHOROUS 2.4 mg/dL (2.5-4.9); POTASSIUM - SERUM 3.9 mmol/L (3.5-5.1); PROTEIN - SERUM 6.2 g/dL (6.4-8.2); SODIUM 136 mmol/L (136-145); eGFR NON AFRICAN AMERICAN > 90 mL/min (90-120)
[2016-06-10 06:36] LABS: CALC OSMOLALITY 278 mosm/kg (275-300); UREA NITROGEN 17 mg/dL (7-18)
--- NOTE | 2016-06-10 08:04 | NUR ---
AM ROUNDS - PT AWAKE AND ALERT IN BED IN LEFT SIDE. SDS ON. PT STATES HE DOES NOT NEED HIS O2 AT THIS TIME AND HAS TAKEN IT OFF. MONITOR SHOWS SR, HR 85. NS WITH 10MEQ K+ AT 100CC/HR IN RIGHT WRIST. CALL MANZO IN USE. SIDE RAILS UP X2. WILL CONTINUE TO MONITOR.
[2016-06-10 08:19] VITALS: BP 145/95
--- NOTE | 2016-06-10 08:58 | CN ---
PATIENT NAME:DEEJAY HER MEDICAL RECORD: [id number] : [birth year] LOCATION:. D.2105 ADMIT DATE: 06/07/16 ACCOUNT: [id number] CONSULTING PHYSICIAN: CATRINA PALOMARES MD REFERRING PHYSICIAN: MARLENE CUNNINGHAM DO DATE OF CONSULTATION: 06/08/2016 Cardiology Consultation DIAGNOSES: 1. Chest pain. 2. Diabetes. 3. New onset atrial fibrillation. 4. Urinary tract infection. HISTORY OF PRESENT ILLNESS: Mr. Her presented with UTI symptomatology. When he was in Dr. Cunningham's office, he was not tachycardic. When he presented to the hospital, he was tachycardic. He was found to be in atrial fibrillation at 160. He is having some chest pressure with this, a dull, aching, heavy sensation across the anterior chest, this has just started today. He does not know that he is in atrial fibrillation, but he can feel the heart beating irregular, this as well started today. He has not had this in the past. He has had the chest pressure in the past, but not to this degree. His EKG is with no acute ST-T abnormalities. CPK and troponin are just now ordered. PHYSICAL EXAMINATION: GENERAL APPEARANCE: Well-nourished, well-developed, appears stated age. Level of distress, comfortable. PSYCHIATRIC: Mental status, alert, normal affect. Orientation, oriented to time, place and person. EYES: Lids and conjunctiva, noninjected. No discharge, no pallor. ENT: Lips, teeth, gums, normal dentition. Oropharynx, no cyanosis, no pallor. NECK: Carotid arteries, bilateral normal upstroke, no bruits, no thrills. JUGULAR VEINS: No jugular venous pressure or distention. CERVICAL LYMPH NODES: Nontender, nonenlarged. THYROID: Not enlarged. Nontender. No nodules. LUNGS: Respiratory effort, unlabored. CHEST: Normal curvature. No thoracic deformity. No chest wall tenderness. Percussion, resonant. Auscultation, clear. No wheezes, no rales, no rhonchi. CARDIOVASCULAR: Precordial exam, nondisplaced. No heaves or pericardial thrills. Rate and rhythm, regular. Heart sounds, normal S1, normal S2. No S3, no gallop, no rub. Systolic murmur, not heard. Diastolic murmur, not heard. EXTREMITIES: No cyanosis, no edema. Peripheral pulses, full and equal in all extremities, except as noted. No bruits appreciated. ABDOMEN: Soft, nondistended. Normal aorta. No bruit. Nontender. No masses. Liver, nontender, no hepatomegaly. Spleen, nontender, no splenomegaly. MUSCULOSKELETAL: No joint tenderness. No joint swelling. No erythema. NEUROLOGICAL: Normal gait, normal strength, normal tone. SKIN: Warm and dry. REVIEW OF SYSTEMS: The patient reports easy bruising but reports no swollen glands. The patient reports no fever, no night sweats, no significant weight gain, no significant weight loss. No significant exercise tolerance. The patient reports no dry eyes, no irritation, no vision change. Patient reports no difficulty hearing and no ear pain. Patient reports no frequent nose bleeds CONSULT REPORT [id number] DEEJAY HER or nose and sinus problems. Patient reports on arm pain on exertion. No shortness of breath while lying down. No history of heart murmur. Patient reports no cough, no wheezing or coughing up blood. Patient reports no abdominal pain, no vomiting. Normal appetite. No diarrhea and not vomiting blood. No nausea and no constipation. Patient reports no incontinence. No difficulty urinating. No hematuria. No increased frequency. Patient reports no muscle aches. No weakness, no arthralgias, no back pain. No swelling of the extremities. Patient reports no abnormal mole, no jaundice, no rashes. Reports no loss of consciousness. No weakness and no numbness. No seizures, dizziness, or headaches. The patient reports no depression, no sleep disturbance, feeling safe in a relationship and no alcohol abuse. Patient reports on fatigue. Reports no runny nose or sinus pressure. No itching, no hives, and no frequent sneezing. Negative for cancer. Negative for previous cardiac intervention. Negative for congestive heart failure. Negative for any bleeding episodes. Negative for past history of atrial fibrillation until now. OVERALL IMPRESSION: Atrial fibrillation with rapid ventricular response. This occurred just this morning. His likelihood of embolic event is low, but with the chest pressure, he very well may have hemodynamically significant coronary artery disease and this may be the etiology of the atrial fibrillation. We will proceed with coronary angiography. We will start pharmacotherapy with sotalol as well. He has already been given Lovenox this admission. We will load him on aspirin and Plavix if no cardiac intervention is necessary. He will need an antithrombotic agent especially if we do electrically cardiovert him. Even if cardiac intervention is undertaken, he will need an antithrombotic agent. Hence, we will proceed with stenting with stent that requires only 30 days of Plavix to limit his overall bleeding risk. Further care depends upon the findings of the catheterization and the results with the sotalol. TRANSINT:[id number] Voice Confirmation ID: [id number] DOCUMENT ID: [id number] CATRINA PALOMARES MD at 0858 CC: [id number] DICTATION DATE: 06/08/16 1254 PLANT AND INSTRUMENT ENGINEER: 06/08/16 1830 ADM IN [facility] [address] [id number]
--- NOTE | 2016-06-10 08:58 | OP ---
PATIENT NAME: DEEJAY LAMB MEDICAL RECORD: [id number] :56 LOCATION:D.M2 D.2105 ADMISSION DATE:06/07/16 SURGEON: CATRIAN PALOMARES MD DATE OF OPERATION: 06/08/2016 PROCEDURES: 1. PTCA stent left circumflex. 2. Left heart catheterization. 3. Selective coronary angiography. 4. Left ventriculogram. INDICATION: Angina, coronary artery disease, and atrial fibrillation new onset. PROCEDURE PERFORMED: After informed consent was obtained and after a detailed explanation of risks, benefits as well as alternative therapies, the patient elected to proceed with angiogram and angioplasty. The right femoral area was prepped and draped in normal sterile fashion. The right femoral artery was cannulated via modified Seldinger technique with placement of 6-Frisian sheath. All catheters exchanged through this sheath. FINDINGS: The left ventriculogram was performed in standard 30-degree TORRES view, reveals global hypokinesis, ejection fraction 40%. SELECTIVE CORONARY ANGIOGRAPHY: 1. Left main has no significant angiographic disease. 2. Left anterior descending has mild irregularities, but no flow-limiting stenosis. 3. The left circumflex has approximately 25 mm length of 75% stenosis in the mid vessel, otherwise only mild irregularities. There is HIEN 3 flow. The diameter of the vessel was 3.0 at this point. 4. The right coronary has a 75% stenosis in the mid vessel, otherwise only moderate irregularities. PTCA STENT OF THE LEFT CIRCUMFLEX: The stent used was a 3.0 x 28 mm BioFreedom. Result was 0% residual stenosis with HIEN-3 flow. OVERALL IMPRESSION: Successful percutaneous transluminal coronary angioplasty stent of the left circumflex going from 75% initial stenosis to 0% residual. PLAN: For PTCA stent of the RCA in the near future. TRANSINT:[id number] Voice Confirmation ID: [id number] DOCUMENT ID: [id number] CATRINA PALOMARES MD at 0858 CC: [id number] DICTATION DATE: 06/08/16 1605 KAYAK MAKER: 06/08/16 2210 [place] [address]
--- NOTE | 2016-06-10 08:58 | OP ---
PATIENT NAME: DEEJAY LAMB MEDICAL RECORD: [id number] :56 LOCATION:D.M2 D.2105 ADMISSION DATE:06/07/16 SURGEON: CATRINA PALOMARES MD DATE OF OPERATION: 06/09/2016 PROCEDURES: 1. PTCA stent of RCA. 2. Selective coronary angiography. INDICATIONS: Angina and coronary artery disease. PROCEDURE IN DETAIL: After informed consent was obtained and after detailed explanation of risks, benefits as well as alternative therapies, the patient elected to proceed with angiogram and angioplasty. The left femoral area was prepped and draped in normal sterile fashion. Left femoral artery was cannulated via modified Seldinger technique with placement of 6-Ukrainian sheath. All catheters exchanged through this sheath. FINDINGS: The right coronary has 80% stenosis in the mid vessel, approximately 25-mm lesion with HIEN-3 flow prior to the intervention, this is a 3.0 vessel. This was addressed with 3.0 x 28 BioFreedom stent. Result was 0% residual stenosis and HIEN-3 flow. OVERALL IMPRESSION: Successful percutaneous transluminal coronary angioplasty stent of the RCA going from 80% initial stenosis to 0% residual. TRANSINT:[id number] Voice Confirmation ID: [id number] DOCUMENT ID: [id number] CATRINA PALOMARES MD at 0858 CC: [id number] DICTATION DATE: 06/09/16 0847 ENVELOPE STAMPING MACHINE OPERATOR: 06/09/162011 ADM IN [facility] [address] [place] [address]
[2016-06-10 12:18] VITALS: BP 150/89
[2016-06-10 16:51] VITALS: BP 143/89
--- NOTE | 2016-06-10 18:15 | NUR ---
PM NOTE - PT SITTING ON SIDE OF BED. ATE DINNER. NO NEEDS AT THIS TIME.
[2016-06-10 19:00] VITALS: BP 136/97
--- NOTE | 2016-06-10 19:15 | NUR ---
ALERT/AWAKE ORIENTED X 4. IV'S IN R WRIST SL AND R HAND WITH IVF INFUSING AT 100ML/HR. REFUSES SCD'S REPLACED. REQUESTED A SLEEPING AID FOR TONIGHT. DENIES PAIN. BED IS LOW WITH SR UP X2. BEDSIDE TABLE WITH PERSONAL ITEMS AND CALL LIGHT IN REACH.
--- NOTE | 2016-06-10 19:25 | NUR ---
REC ORDER FROM DR EASTMAN FOR RESTORIL 15MG PO HS PER PATIENT'S REQUEST FOR SLEEP.
--- NOTE | 2016-06-10 23:00 | NUR ---
RETURNING TO BED FROM BR. REQUESTED ASSISTANCE WITH PUTTING ON DIAPER, CLEAN GOWN AND PAD.
--- NOTE | 2016-06-11 00:40 | NUR ---
ADMIN ZANAFLEX PO PER REQUEST FOR MUSCLE SPASMS.
[2016-06-11 06:08] LABS: BASOPHILS 0.4 % (0-2); HEMATOCRIT 37.2 % (42.0-54.0); HEMOGLOBIN 12.3 g/dL (13.5-17.5); IMMATURE GRANULOCYTES 5.9 % (0-5); MCH 29.1 pg (26.0-34.0); MCHC 33.1 g/dL (31.0-37.0); MCV 87.9 fL (80.0-100.0); MEAN PLATELET VOLUME 10.9 fL (7.4-10.4); MONOCYTES 9.4 % (2-11); NEUTROPHILS 69.3 % (40-80); PLATELET COUNT 255 10x3/uL (130-400); RBC 4.23 10x6/uL (4.20-6.10); RDW 14.3 % (11.5-14.5); WBC 10.5 10x3/uL (4.8-10.8)
[2016-06-11 06:10] LABS: CALCIUM 7.9 mg/dL (8.5-10.1); CARBON DIOXIDE 22.9 mmol/L (21.0-32.0); CHLORIDE - SERUM 105 mmol/L (98-107); CREATININE - SERUM 0.7 mg/dL (0.6-1.3); POTASSIUM - SERUM 4.3 mmol/L (3.5-5.1); SODIUM 138 mmol/L (136-145); eGFR NON AFRICAN AMERICAN > 90 mL/min (90-120)
[2016-06-11 06:17] LABS: CALC OSMOLALITY 276 mosm/kg (275-300); GLUCOSE 135 mg/dL (74-106); UREA NITROGEN 11 mg/dL (7-18)
[2016-06-11 07:33] VITALS: BP 118/71
[2016-06-11 08:00] VITALS: BP 125/74
[2016-06-11] MEDS ORDERED: PLAVIX75 MG PO (08:39)
[2016-06-11] MEDS ORDERED: GLIMEPIRIDE4 MG PO (08:40)
[2016-06-11] MEDS ORDERED: GLUCOPHAGE500 MG PO (08:40)
[2016-06-11] MEDS ORDERED: PRAVACHOL40 MG PO (08:41)
[2016-06-11] MEDS ORDERED: LEVAQUIN500 MG PO (08:41)
[2016-06-11] MEDS ORDERED: BAYER CHEWABLE81 MG PO (08:41)
--- NOTE | 2016-06-11 09:00 | NUR ---
PATIENT IS AWAKE AND ALERT, IV INTACT AND PATEN, PATIENT REQUESTS THAT IT BE DISCONNECTED SO THAT HE MAY GO TO THE BR. PATIENT GOT UP AND WENT TO THE BR.
--- NOTE | 2016-06-11 10:59 | NUR ---
D/C'D PATIENT'S IV, CATH INTACT. PATIENT TOOK OFF TELEMETRY. DID GIVE PATIENT D/C MED CLOPIDEGREL HARD SCRIPT PER MD, PROVIDED D/C INSTRUCTIONS, EXPLAINED TO PATIENT TO PLEASE CALL DR. CUNNINGHAM TO HAVE A F/U WITHIN ONE WEEK FROM D/C. PATIENT VERBALIZED UNDERSTANDING.
--- NOTE | 2016-06-11 11:40 | NUR ---
PATIENTS RIDE HERE, TOLD [employer] THAT HE NEEDS A W/C.
--- NOTE | 2016-06-11 11:45 | NUR ---
PATIENT TAKEN IN W/C TO HIS CAR. D/C'D OFF THE UNIT.
--- NOTE | 2016-06-11 14:40 | DS ---
PATIENT:DEEJAY LAMB :56 MEDICAL RECORD: [id number] DISCHARGE SUMMARY ADMISSION DATE: 06/07/16 DISCHARGE DATE: 06/11/16 DATE OF ADMISSION: 06/07/2016 DATE OF DISCHARGE: 06/11/2016 CONDITION ON DISCHARGE: Improved. ADMITTING DIAGNOSES: Pyelonephritis, hyponatremia, uncontrolled diabetes mellitus, leukocytosis, renal insufficiency, chest pain. DISCHARGE DIAGNOSES: Diabetes mellitus, pyelonephritis, hyperlipidemia, coronary artery disease. HOSPITAL COURSE: This patient is a 55-year-old gentleman who had a history of known diabetes mellitus, presented to the clinic on the , saw Dr. Mcdonnell. The patient had signs and symptoms of urinary tract infection, had been off his meds for many months. The patient also had complained of having some chest pain. The patient was admitted, started on Humalog sliding scales, as well as Levaquin. He was seen in consultation by Dr. Ro. Dr. Ro did do a cardiac catheterization via the PTCA stenting of the left circumflex. He also had 75% stenosis of the right coronary artery, both were stented on 2 separate occasions. The patient's chest pain totally resolved. On the morning of the , the patient was no longer febrile, leukocytosis had resolved. He was no longer having chest pain. LABORATORY DATA: His white count was 10.5, hemoglobin 12.3, hematocrit 37.2, platelets were 255. He had a sodium 138, potassium 4.3, chloride 105, CO2 is 22.9, his BUN is 11 and creatinine is 0.7, his glucose was 135. The patient was stable and it was felt he could be discharged. DISCHARGE INSTRUCTIONS: He was to continue his Plavix 75 mg once a day, Amaryl 4 mg 1 p.o. q. day, metformin 500 mg once a day, Pravachol 40 mg once a day, aspirin 81 mg once a day. He would be on Levaquin 500 mg once a day for 5 more days. The patient was discharged. He was to see Dr. Mcdonnell in the following week. He would be on a 2200 calorie ADA diet. ACTIVITIES: Ad regina. He would also have follow up with Dr. Ro. TRANSINT:[id number] Voice Confirmation ID: [id number] DOCUMENT ID: [id number] CORNELIO GALE MD at 1440 CC: [id number] DICTATION DATE: 06/11/16 0848 FOOD GENERAL MANAGER: 06/11/16 1057 DIS IN 06/11/16 [place] [id number] [facility] [place] [address]
== END 2016-06-11 11:45 | disposition home or self-care (01) | DRG 247 ==
LOC: D.M2 11:15
PROVIDERS: Family Medicine; Internal Medicine Interventional Cardiology; ADMIT Family Medicine
PROC: B2111ZZ Fluoroscopy of Multiple Coronary Arteries using Low Osmolar Contrast (ICD-10-PCS; 2016-06-08)
PROC: B2151ZZ Fluoroscopy of Left Heart using Low Osmolar Contrast (ICD-10-PCS; 2016-06-08)
PROC: 027034Z Dilation of Coronary Artery, One Artery with Drug-eluting Intraluminal Device, Percutaneous Approach (ICD-10-PCS; principal; 2016-06-08 13:00)
PROC: 4A023N7 Measurement of Cardiac Sampling and Pressure, Left Heart, Percutaneous Approach (ICD-10-PCS; 2016-06-08 13:00)
PROC: 027034Z Dilation of Coronary Artery, One Artery with Drug-eluting Intraluminal Device, Percutaneous Approach (ICD-10-PCS; 2016-06-08 13:00)
DX: I25.119 Atherosclerotic heart disease of native coronary artery with unspecified angina pectoris (principal); E87.1 Hypo-osmolality and hyponatremia; N39.0 Urinary tract infection, site not specified; I48.91 Unspecified atrial fibrillation; N28.9 Disorder of kidney and ureter, unspecified; E86.0 Dehydration; E11.9 Type 2 diabetes mellitus without complications; Z00.6 Encounter for examination for normal comparison and control in clinical research program; E78.5 Hyperlipidemia, unspecified

== ENCOUNTER 2016-06-15 12:52 | Inpatient (IN) | payer MEDICARE ==
[2016-06-15] VITALS (12 sets, daily range): BP systolic 113–149; BP diastolic 79–103; BMI 35.9
[~2016-06-15] VITALS: Ht 182.9 cm; Wt 112.4 kg
--- NOTE | ~2016-06-15 | HEMODYNAMI ---
PATIENT:DEEJAY LAMB MEDICAL RECORD: [id number] : 56 LOCATION:[facility]# [id number] ADMISSION DATE: 06/15/16 Generatedon:06/15/201614:35 Patient name: DEEJAY LAMB Patient #: [id number] SSN: [id number] : 1960 Date of study: 06/15/2016 Page: Of Hemodynamic Procedure Report Patient Data Patient Demographics Procedure consent was obtained First Name: DEEJAY Gender: Male Last Name: ADONIS : 1960 [facility] Initial: RODRÍGUEZ Age: 55 year(s) Patient #: [id number] Race: SSN: [id number] Additional ID: [id number] Contact details Address: [address] [place] [address] State: [place] City: [facility] [place] Zip code: [address] Past Medical History Allergies: No known allergies Admission Admission Data Admission Date: 06/15/2016 Admission Time: 12:52 Arrival Date: 06/15/2016 Arrival Time: 12:52 Admit Source: Other Insurance Payor: Medicare Weight (lbs.): 254.41 Weight (kg.): 115.4 Lab Results Lab Result Date: 06/09/2016 Lab Result Time: 0:00 Biochemistry Name Units Result Min Max BUN mg/dl 27 --(----)-* 7 18 Creatinine mg/dl 1.2 --(---*)-- 0.6 1.3 CBC Name Units Result Min Max Hematocrit % 37.4 *-(----)-- 42 54 Hemoglobin g/dl 12.4 *-(----)-- 13.5 17.5 Procedure Procedure Types Cath Procedure Diagnostic Procedure LHC Coronaries only PCI Procedure PTCA Initial Miscellaneous Procedures Moderate Sedation up to 45 minutes Procedure Description Procedure Date Procedure Date: 06/15/2016 Procedure Start Time: 13:15 Procedure End Time: 14:22 Procedure Staff Name Function Isaiah Soliz MD Performing Physician Elis Avendaño RT Scrub Dru Muñoz RN Nurse Agatha Bob RT Monitor Procedure Data Cath Procedure Fluoroscopy Diagnostic fluoroscopy Total fluoroscopy Time: time: 28.4 min 28.4 min Diagnostic fluoroscopy Total fluoroscopy dose: dose: 4628 mGy 4628 mGy Contrast Material Contrast Material Type Amount (ml) Isovue 370 327 Entry Location Entry Primary Successful Side Size Upsize Upsize Entry Closure Succes sful Closure Location (Fr) 1 (Fr) 2 (Fr) Remarks Device Remarks Femoral Right 6 Fr artery Short Femoral Right 6 Fr vein Short Estimated blood loss: 5 ml Procedure Complications No complications Procedure Medications Medication Administration Route Dosage Oxygen NC 2 l/min Lidocaine 2% added to field 20 Heparin Flush Bag added to field 2 bags (1000units/500ml NS) 0.9% NaCl I.V. 100 ml/hr Versed I.V. 1 mg Fentanyl I.V. 50 mcg Versed I.V. 1 mg Fentanyl I.V. 50 mcg Heparin Bolus I.V. 90574 units Versed I.V. 1 mg Fentanyl I.V. 50 mcg Fentanyl I.V. 50 mcg Versed I.V. 1 mg Fentanyl I.V. 50 mcg Heparin Bolus I.V. 5000 units Amiodarone Loading I.V. drip 150 mg Dose (150mg/100ml D5W) Integrilin (Bolus I.V. 10.7 ml 2mg/ml) Integrilin Drip I.V. drip 9.2 ml/hr (75mg/100ml) Plavix P.O. 600 mg Hemodynamics Rest HGB: 12.4 (g/dl) Heart Rate: 83 (bpm) Snapshots Pre Cath Intra NCS Post Cath Vital Signs Time Heart Resp SPO2 NIBP (mmHg) Rhythm Pain Sedation Rate (ipm) (%) Status Level (bpm) 13:10:32 85 32 98 148/107(126) NSR w/ ST 0 (11) 10(A) Elevation , No pain 13:14:50 98 15 95 149/111(138) NSR w/ ST 0 (11) 10(A) Elevation , No pain 13:19:10 130 19 100 154/116(136) NSR w/ ST 0 (11) 10(A) Elevation , No pain 13:23:33 106 27 99 155/114(135) NSR w/ ST 0 (11) 10(A) Elevation , No pain 13:27:55 114 23 98 154/113(134) NSR w/ ST 0 (11) 10(A) Elevation , No pain 13:32:54 114 13 99 Measuring NSR w/ ST 0 (11) 10(A) Elevation , No pain 13:33:39 116 20 98 146/111(130) NSR w/ ST 0 (11) 10(A) Elevation , No pain 13:37:57 117 20 98 162/118(135) NSR w/ ST 0 (11) 10(A) Elevation , No pain 13:42:23 125 14 96 151/113(138) NSR w/ ST 0 (11) 10(A) Elevation , No pain 13:46:43 127 15 97 151/108(137) NSR w/ ST 0 (11) 10(A) Elevation , No pain 13:51:03 109 16 98 146/108(132) NSR w/ ST 0 (11) 10(A) Elevation , No pain 13:55:21 94 29 99 162/130(154) NSR w/ ST 0 (11) 10(A) Elevation , No pain 13:59:46 99 27 97 152/119(138) NSR w/ ST 0 (11) 10(A) Elevation , No pain 14:04:08 82 18 100 152/116(130) NSR w/ ST 0 (11) 10(A) Elevation , No pain 14:08:28 111 17 100 150/115(127) NSR w/ ST 0 (11) 10(A) Elevation , No pain 14:12:48 109 19 100 153/112(130) NSR w/ ST 0 (11) 10(A) Elevation , No pain 14:17:10 108 20 100 150/106(121) NSR w/ ST 0 (11) 10(A) Elevation , No pain 14:21:22 110 19 99 140/108(122) NSR w/ ST 0 (11) 10(A) Elevation , No pain Medications Time Medication Route Dose Verified Delivered Reason Notes Effectiveness by by 13:12:33 Oxygen NC 2 Isaiah Buffie used for l/min John Muñoz RN procedure 13:12:40 Lidocaine 2% added 20ml Isaiah Isaiah used for to vial John Soliz MD procedure field 13:12:46 Heparin Flush added 2 bags Isaiah Isaiah used for Bag to John Soliz MD procedure (1000units/500ml field NS) 13:12:55 0.9% NaCl I.V. 100 Isaiah Buffie Per physician ml/hr John Muñoz RN 13:14:19 Versed I.V. 1 mg Isaiah Buffie for sedation John Muñoz RN 13:14:25 Fentanyl I.V. 50 mcg Isaiah Buffie for sedation John Muñoz RN 13:22:10 Versed I.V. 1 mg Isaiah Buffie for sedation John Muñoz RN 13:22:13 Fentanyl I.V. 50 mcg Isaiah Buffie for sedation John Muñoz RN 13:24:28 Heparin Bolus I.V. 19231 Isaiah Buffie for verif ied units John Muñoz RN anticoagulation with dr soliz 13:32:10 Versed I.V. 1 mg Isaiah Buffie for sedation John Muoñz RN 13:32:14 Fentanyl I.V. 50 mcg Isaiah Buffie for sedation John Muñoz RN 13:34:20 Fentanyl I.V. 50 mcg Isaiah Buffie for sedation John Muñoz RN 13:39:14 Versed I.V. 1 mg Isaiah Buffie for sedation John Muñoz RN 13:44:11 Fentanyl I.V. 50 mcg Isaiah Buffie for sedation John Muñoz RN 13:55:57 Amiodarone I.V. 150 mg Isaiah Buffie Per physician Loading Dose drip John Muñoz RN (150mg/100ml D5W) 13:57:47 Heparin Bolus I.V. 5000 Isaiah Buffie for verif ied units John Muñoz RN anticoagulation with dr soliz 14:09:02 Integrilin I.V. 10.7ml Isaiah Buffie for waste d (Bolus 2mg/ml) John Muñoz RN anticoagulation 9.3cc integrilin 14:18:08 Integrilin Drip I.V. 9.2 Isaiah Buffie Per physician renal dose (75mg/100ml) drip ml/hr John Muñoz RN adjustment. 14:18:31 Plavix P.O. 600 mg Isaiah Buffie for John Muñoz RN antiplatelet therapy Procedure Log Time Note 13:03:52 Informed consent obtained and on chart 13:03:56 Diagnostic Cath Status : Elective 13:04:17 Dru Muñoz RN sent for patient. Start room use. 13:04:18 Time tracking: Regular hours 13:04:23 Plan of Care:Hemodynamics will remain stable., Cardiac rhythm will remain stable., Comfort level will be maintained., Respiratory function will remain adequate., Patient/ family verbilizes understanding of procedure., Procedure tolerated without complication., Recovers from procedure without complications.. 13:06:37 Patient received from ED to CCL 2 Alert and oriented. Tansferred to table in Supine position. 13:06:38 Warm blankets applied, and khanh hugger turned on for patient comfort. 13:06:38 Correct patient and procedure confirmed by team. 13:06:38 ECG and BP/O2 sat monitors applied to patient. 13:09:22 Vital chart was started 13:10:04 Baseline sample Acquired. 13:10:17 Full Disclosure recording started 13:10:21 H&P Date Dictated: 06/15/2016 Within 30 days and on chart., H&P Addendum completed by physician on day of procedure. (MUST COMPLETE FOR ALL OUTPATIENTS). 13:10:22 Pre-procedure instructions explained to patient. 13:10:23 Pre-op teaching completed and patient verbalized understanding. 13:10:24 Family in waiting room. 13:10:25 Patient NPO since Midnight. 13:11:09 Is the patient allergic to Iodine/contrast media? No. 13:11:10 Was the patient premedicated? No 13:11:12 Is patient on blood thinner?No 13:11:13 Patient diabetic? Yes. 13:11:16 If diabetic: On Metformin? No 13:11:18 Previous problem with sedation/anesthesia? No ? 13:11:19 Snore? Yes 13:11:20 Sleep apnea? No 13:11:21 Deviated septum? No 13:11:22 Opens mouth fully? Yes 13:11:22 Sticks out tongue? Yes 13:11:24 Airway obstruction? No ? 13:11:26 Dentures? No ? 13:11:29 Pre procedure: right dorsailis pedis pulse 1+ Palpable, but thready & weak; easily obliterated 13:11:39 IV patent on arrival in right forearm with 0.9% NaCl at O. 13:11:45 Lab results completed and on chart. 13:11:49 Right groin area was prepped with chlora-prep and draped in sterile fashion 13:11:50 Alarms reviewed by R. N. 13:11:50 Sharps counted by scrub and verified by R.N. 13:11:51 Physician arrived 13:11:51 --------ALL STOP TIME OUT------ 13:11:52 Final Timeout: patient, procedure, and site verified with staff and physician. All members of the team are in agreement. 13:11:54 Right groin site verified by team. 13:12:01 Physical assessment completed. ASA score P 3 - A patient with severe systemic disease as per Isaiah Soliz MD. 13:12:04 Sedation plan: IV Moderate Sedation Versed, Fentanyl 13:12:25 Use device set Femoral PCI 13:12:26 Acist Syringe opened to sterile field. 13:12:26 Acist Hand Control opened to sterile field. 13:12:27 Bag Decanter opened to sterile field. 13:12:27 Medline Cath Pack opened to sterile field. 13:12:27 Terumo 6Fr [place] Sheath opened to sterile field. 13:12:28 St Mic 260cm J .035 wire opened to sterile field. 13:12:28 Merit BasixCompak Inflation Kit opened to sterile field. 13:12:29 Acist Manifold opened to sterile field. 13:12:29 Tegaderm 4 x 4 opened to sterile field. 13:12:33 Oxygen 2 l/min NC was administered by Dru Muñoz RN; used for procedure; 13:12:40 Lidocaine 2% 20ml vial added to field was administered by Isaiah Soliz MD; used for procedure; 13:12:43 Beltrán BMW [place] 2 J-tip 300cm 0.014 guide wir opened to sterile field. 13:12:46 Heparin Flush Bag (1000units/500ml NS) 2 bags added to field was administered by Isaiah Soliz MD; used for procedure; 13:12:55 0.9% NaCl 100 ml/hr I.V. was administered by Dru Muñoz RN; Per physician; 13:13:03 High Pressure Extension Tubing (John) opened to sterile field. 13:13:04 Beltrán BMW [place] 2 J-tip 300cm 0.014 guide wir opened to sterile field. 13:14:19 Versed 1 mg I.V. was administered by Dru Muñoz RN; for sedation; 13:14:25 Fentanyl 50 mcg I.V. was administered by Dru Muñoz RN; for sedation; 13:15:07 Procedure started. 13:15:50 Local anesthetic to right femoral artery with Lidocaine 2% by Isaiah Soliz MD.INITIAL ACCESS ONLY 13:16:04 A 6 Fr Short sheath was inserted into the Right Femoral artery 13:16:09 Zero performed for pressure channel P1 13:17:04 Zero performed for pressure channel P1 13:17:12 Zero performed for pressure channel P1 13:17:20 Zero performed for pressure channel P1 13:17:29 Zero performed for pressure channel P1 13:17:35 Zero performed for pressure channel P1 13:17:56 Diagnostic Infinity 5Fr Multipack catheter opened to sterile field. 13:18:02 5 Fr jl4 guide catheter was inserted over the wire 13:18:28 LCA angiography performed. 13:18:31 Injector settings: Ml/sec: 3, Volume: 6, 13:19:00 Cordis 6FR XBLAD 3.5 guide catheter opened to sterile field. 13:19:53 Catheter removed. 13:20:03 5 Fr 3drc guide catheter was inserted over the wire 13:20:09 RCA angiography performed. 13:20:12 Injector settings: Ml/sec: 3, Volume: 6, 13:21:15 Medtronic Launcher 6Fr AR 1.0 guide catheter opened to sterile field. 13:21:29 Catheter removed. 13:21:58 Terumo 6Fr [place] Sheath opened to sterile field. 13:22:10 Versed 1 mg I.V. was administered by Dru Muñoz RN; for sedation; 13:22:13 Fentanyl 50 mcg I.V. was administered by Dru Muñoz RN; for sedation; 13:22:41 Local anesthetic to right femoral vein with Lidocaine 2% by Isaiah Soliz MD.ADDITIONAL ACCESS 13:24:05 A 6 Fr Short sheath was inserted into the Right Femoral vein 13:24:28 Heparin Bolus 79721 units I.V. was administered by Dru Muñoz RN; for anticoagulation; verified with dr soliz 13:25:28 6 Fr ar 1 guide catheter was inserted over the wire 13:25:31 bmw wire advanced. 13:28:41 Wire removed. 13:29:00 [place] Sci Choice PT Floppy Straight 300cm 0.014 g opened to sterile field. 13:29:58 RCA disected after diagnostic run; attempting to wire through disection 13:31:50 bmw wire advanced. 13:32:10 Versed 1 mg I.V. was administered by Dru Muñoz RN; for sedation; 13:32:14 Fentanyl 50 mcg I.V. was administered by Dru Muñoz RN; for sedation; 13:34:20 Fentanyl 50 mcg I.V. was administered by Dru Muñoz RN; for sedation; 13:36:13 Wire removed. 13:39:14 Versed 1 mg I.V. was administered by Dru Muñoz RN; for sedation; 13:39:31 The [place] Sci Rankin 2.5 X 20 balloon was advanced and then removed because of failure to cross lesion 13:39:45 Wire removed. 13:41:29 Guide catheter removed. 13:41:43 Medtronic Launcher 6Fr 3DRC guide catheter opened to sterile field. 13:44:08 bmw wire advanced. 13:44:11 Fentanyl 50 mcg I.V. was administered by Dru Muñoz RN; for sedation; 13:45:31 Wire removed. 13:45:31 Guide catheter removed. 13:45:54 6 Fr xblad 3.5 guide catheter was inserted over the wire 13:47:34 LCA angiography performed. 13:47:36 Injector settings: Ml/sec: 3, Volume: 6, 13:49:03 bmw wire advanced. 13:50:58 Wire advanced across lesion. 13:51:16 Quick combo pads placed on patients chest and back. 13:51:18 Defibrillator synced and charged to 300 Joules. 13:51:19 Shock delivered. 13:51:25 Defibrillator synced and charged to 360 Joules. 13:51:31 Shock delivered. 13:52:29 Defibrillator synced and charged to 360 Joules. 13:52:29 Shock delivered. 13:52:33 Defibrillator synced and charged to 360 Joules. 13:52:34 Shock delivered. 13:52:52 Shock delivered. 13:53:33 Inflation number: 1 A [place] Sci Rankin 2.5 X 20 balloon was prepped and advanced across the Mid CX, then inflated to 14 SANTIAGO for 0:10 (min:sec). 13:54:39 Inflation number: 2 The [place] Sci Rankin 2.5 X 20 balloon was reinflated across the Mid CX, to 14 SANTIAGO for 0:10 (min:sec). 13:55:53 Balloon removed over the wire. 13:55:57 Amiodarone Loading Dose (150mg/100ml D5W) 150 mg I.V. drip was administered by Dru Muñoz RN; Per physician; 13:55:59 Wire removed. 13:56:22 [place] Sci Luge Straight 300cm 0.014 guide wire opened to sterile field. 13:57:15 luge wire advanced. 13:57:47 Heparin Bolus 5000 units I.V. was administered by Dru Muñoz RN; for anticoagulation; verified with dr soliz 14:06:32 Wire removed. 14:06:35 Beltrán Whisper J 300cm 0.014 guide wire opened to sterile field. 14:06:41 whisper wire advanced. 14:07:12 Inflation number: 3 A [place] Sci Rankin 2.5 X 20 balloon was prepped and advanced across the Mid CX, then inflated to 8 SANTIAGO for 0:10 (min:sec). 14:07:36 Inflation number: 4 The [place] Sci Rankin 2.5 X 20 balloon was reinflated across the Mid CX, to 10 SANTIAGO for 0:10 (min:sec). 14:08:11 Inflation number: 5 The [place] Sci Rankin 2.5 X 20 balloon was reinflated across the Mid CX, to 14 SANTIAGO for 0:10 (min:sec). 14:09:02 Integrilin (Bolus 2mg/ml) 10.7ml I.V. was administered by Dru Muñoz RN; for anticoagulation; wasted 9.3cc integrilin 14:09:21 Inflation number: 6 The [place] Sci Rankin 2.5 X 20 balloon was reinflated across the Mid CX, to 14 SANTIAGO for 0:10 (min:sec). 14:12:47 Wire removed. 14:12:48 Guide catheter removed. 14:18:08 Integrilin Drip (75mg/100ml) 9.2 ml/hr I.V. drip was administered by Dru Muñoz RN; Per physician; renal dose adjustment. 14:18:31 Plavix 600 mg P.O. was administered by Dru Muñoz RN; for antiplatelet therapy; 14:18:39 Venous and Arterial sheath sutured into groin 14:18:50 Procedure ended.(Physican Out) 14:19:03 Fluoroscopy time 28.40 minutes. 14:19:11 Flurop Dose total: 4628 14:19:11 Fluoroscopy dose: 4628 mGy 14:19:26 Contrast amount:Isovue 370 327ml. 14:19:41 Insertion/operative site no bleeding no hematoma. 14:20:14 Post right femoral artery:stable 14:20:16 Post Procedure Pulses reassessed and unchanged 14:20:37 Post procedure rhythm: unchanged. 14:20:41 Estimated blood loss: 5 ml 14:20:42 Post procedure instruction explained to patient.Patient verbalizes understanding. 14:20:42 Patient needs reinforcement of post procedure teaching. 14:21:23 Procedure type changed to Cath procedure, Diagnostic procedure, LHC, Coronaries only, PCI procedure, PTCA Initial, Miscellaneous Procedures, Moderate Sedation up to 45 minutes 14:21:24 Procedure and supply charges have been captured, reviewed, submitted and are correct. 14:21:33 Procedure Complication : No complications 14:21:35 Vital chart was stopped 14:21:35 See physician's report for complete and final results. 14:22:00 Report given to CVICU. 14:22:04 Patient transfered to CVICU with Stretcher. 14:22:09 Procedure ended. 14:22:09 Full Disclosure recording stopped 14:22:21 ACC-PCI Only Patient was given prescriptions, or instructed by Isaiah Soliz MD to start/continue the following medications upon discharge: Plavix 14:22:22 End room use (Document Last) 14:23:27 Quick Combo opened to sterile field. 14:24:22 Admit Source: Other 14:24:29 Arrival Date: 06/15/2016 12:52:00 PM 14:24:39 Insurance Payor : Medicare 14:25:19 Patient Weight : 115.4 kg Intervention Summary Intervention Notes Time ActionType Lesion and Equipment Action# Pressure Duration Attributes Used 13:39:31 Discard [place] Balloon Sci Rankin 2.5 X 20 balloon 13:53:33 Inflate Mid CX [place] 1 14 00:10 balloon Sci Rankin 2.5 X 20 balloon 13:54:39 Reinflate Mid CX [place] 2 14 00:10 balloon Sci Rankin 2.5 X 20 balloon 14:07:12 Inflate Mid CX [place] 3 8 00:10 balloon Sci Rankin 2.5 X 20 balloon 14:07:36 Reinflate Mid CX [place] 4 10 00:10 balloon Sci Rankin 2.5 X 20 balloon 14:08:11 Reinflate Mid CX [place] 5 14 00:10 balloon Sci Rankin 2.5 X 20 balloon 14:09:21 Reinflate Mid CX [place] 6 14 00:10 balloon Sci Rankin 2.5 X 20 balloon Device Usage Item Name Manufacture Quantity Catalog Number Hospital Part Current Mini mal Lot# / Charge Number Stock Stock Serial# Code Acist Acist 1 [id number] 021805 676956 319018 20 Syringe Medical Systems Inc Acist Hand Acist 1 24719 132425 267191 668141 5 [employer] Medical Systems Inc Bag Microtek 1 2002S 690330 17752 641511 5 ADVANCED [employer] Inc. Medline Cardinal 1 [id number] 067239 21947 454052 5 Cath Pack Health Terumo 6Fr Terumo 2 [id number] 898869 866776 277622 [address] Mic 1 280559 189409 768878 203741 30 260cm J .035 wire Merit Merit 1 JT8848 370731 117856 193689 15 BasixElasticDot Medical Inflation Kit Acist Acist 1 33433 395841 580217 190347 5 WideOrbit Medical Systems Inc Tegaderm 4 3M 1 1626W 008993 503620 329013 5 x 4 Beltrán BMW Beltrán 2 [id number] 259788 171613 760476 5 [place] 2 Vascular J-tip 300cm 0.014 guide wir High Merit 1 [id number] 742112 52610 416385 10 Pressure Medical Extension Tubing (Soliz) Diagnostic Cardinal 1 KM7619 720714 78695 513853 30 Comenta TVity Health 5Fr Multipack catheter Cordis 6FR Cardinal 1 [id number] 120526 280112 155590 10 XBLAD 3.5 Health guide catheter Medtronic Medtronic 1 [id number] 778611 73638 972878 1 Launcher 6Fr AR 1.0 guide catheter [place] Sci [place] 1 [id number] 439534 991226 169026 5 Choice PT Scientific Floppy Straight 300cm 0.014 g [place] Sci [place] 2 [id number] 843599 949156 081928 1 Rankin Scientific 2.5 X 20 balloon Medtronic Medtronic 1 [id number] 209433 106936 755580 1 Launcher 6Fr 3DRC guide catheter [place] Sci [place] 1 [id number] 181129 406726 024139 5 Luge Scientific Straight 300cm 0.014 guide wire Beltrán Beltrán 1 [id number] 120292 092567 353960 5 AjubeoisCleverSet Vascular 300cm 0.014 guide wire ProcureSafe 1 [id number] 737476 616433 599567 5 Signature Audit [place] Stage Time Signature Unsigned Intra-Procedure 06/15/2016 Agatha Bob 2:34:56 PM RT(R) Signatures Monitor : Agatha Bob RT Signature : Date : Time : [place] [id number] [place] [address]
[~2016-06-15 12:52] MED LIST: BAYER CHEWABLE81 MG PO; GLIMEPIRIDE4 MG PO; GLUCOPHAGE500 MG PO; LEVAQUIN500 MG PO; PLAVIX75 MG PO; PRAVACHOL40 MG PO
[2016-06-15 13:05] LABS: BASOPHILS 0.2 % (0-2); EOSINOPHILS 0.8 % (0-7); HEMATOCRIT 43.7 % (42.0-54.0); HEMOGLOBIN 14.6 g/dL (13.5-17.5); IMMATURE GRANULOCYTES 2.2 % (0-5); MCH 29.5 pg (26.0-34.0); MCHC 33.4 g/dL (31.0-37.0); MCV 88.3 fL (80.0-100.0); MEAN PLATELET VOLUME 9.8 fL (7.4-10.4); MONOCYTES 6.5 % (2-11); NEUTROPHILS 71.3 % (40-80); PLATELET COUNT 512 10x3/uL (130-400); RBC 4.95 10x6/uL (4.20-6.10); RDW 13.9 % (11.5-14.5); WBC 17.6 10x3/uL (4.8-10.8)
[2016-06-15 13:17] LABS: ALBUMIN 2.6 g/dL (3.4-5.0); ALKALINE PHOSPHATASE 275 U/L (46-116); ALT (SGPT) 74 U/L (10-68); BILIRUBIN - TOTAL 0.71 mg/dL (0.2-1.3); CALC OSMOLALITY 278 mosm/kg (275-300); CALCIUM 9.1 mg/dL (8.5-10.1); CARBON DIOXIDE 25.9 mmol/L (21.0-32.0); CHLORIDE - SERUM 99 mmol/L (98-107); CREATININE - SERUM 1.3 mg/dL (0.6-1.3); PROTEIN - SERUM 8.7 g/dL (6.4-8.2); SODIUM 134 mmol/L (136-145); UREA NITROGEN 12 mg/dL (7-18); eGFR NON AFRICAN AMERICAN 60 mL/min (90-120)
[2016-06-15 13:23] LABS: GLUCOSE 291 mg/dL (74-106)
[2016-06-15 13:29] LABS: CHOL - HDL RATIO 5.9 ratio (2.3-4.9); CHOLESTEROL, TOTAL 236 mg/dL (0-200); CKMB 1.7 U/L (0.0-3.6); CREATINE KINASE 40 UL (21-232); HDL CHOLESTEROL 40 mg/dL (32-96); LDL CHOLESTEROL 167 mg/dL (0-100); LDL-HDL RATIO 4.2 ratio (1.5-3.5); TRIGLYCERIDE 149 mg/dL (30-200); TROPONIN-I 0.017 ng/mL (0.000-0.060)
--- NOTE | 2016-06-15 15:00 | NUR ---
RECIEVED PT FROM [facility]. REPORT RECIEVED FROM WALLACE HARRISON. PLACED ON ICU MONITORS. NSR WITH ST ELEVATION NOTED. SYSTOLIC PRESSURE OF [address] DONG AWARE. INTEGRALIN INFUSING AT 9.2CC/HR TO RIGHT AC FROM [facility] ALONG WITH NS AT 100CC/HR X4H PER ORDER. ARTERIAL AND VENOUS SHEATH NOTED TO RIGHT GROIN. NO S/SX OF HEMATOMA PRESENT. AREA SOFT AND NO BRUISING PRESENT. PEDAL PULSES FOUND USING DOPPLER. ADMISSION ASSESSMENT COMPLETE PER FLOWSHEET. CALL LIGHT PLACED IN REACH. INSTRUCTED PT TO KEEP HIS RIGHT LEG STRAIGHT AND TO NOT BEND AT THE HIP. VERBALIZED UNDERSTANDING. WILL CONT TO ASSESS FOR CHANGES THROUGHOUT SHIFT.
--- NOTE | 2016-06-15 16:00 | NUR ---
DR. DONG AT BEDSIDE. UPDATE PROVIDED.
--- NOTE | 2016-06-15 16:50 | NUR ---
MAYRA LAMB (MOM) CONTACTED PER PT REQUEST. UPDATED ON CURRENT ADMISSION.
--- NOTE | 2016-06-15 17:00 | NUR ---
PT REQUESTED TO HAVE MOTHER, MAYRA TAKE HIS WALLET, WATCH, AND KEYS WITH HER WHEN SHE ARRIVES.
--- NOTE | 2016-06-15 17:59 | NUR ---
PT RESTING IN BED QUIETLY. NO ACUTE CHANGES NOTED AT HIS TIME.
--- NOTE | 2016-06-15 18:03 | NUR ---
16FR DIEHL CATH PLACED USING STERILE TECHNIQUE. LEFT LEG PREPPED TO PLACE STAT LOCK. DIEHL BAG DATED AND TIMED. 450CC OF CLEAR, YELLOW URINE NOTED IMMEDIATELY POST INSERTION. WILL MONITOR OUTPUT.
--- NOTE | 2016-06-15 19:35 | NUR ---
REC'D PT RESTING IN BED ON O2 @ 3LITERS VIA NC, AWAKE, ALERT, ORIENTED X 4, RIGHT A/C PIV PATENT WITH INTEGRILIN INFUSING @ 9.2CC/HR, CM-SR @ 84, RIGHT GROIN SHEATH INTACT WITH PRESSURE BAG TRANSDUCED, NO BLEEDING OR HEMATOMA NOTED, DIEHL PATENT DRAINING CLEAR YELLOW URINE, PT DENIES PAIN OR NEEDS, SR UP X 2, CALL LIGHT IN REACH, BED IN LOW POSITION.
--- NOTE | 2016-06-15 20:00 | NUR ---
PT'S STEP MOTHER AND SISTER HERE TO VISIT, UPDATE PROVIDED, PT WISHES TO SEND WATCH, WALLET, AND KEYS HOME WITH STEP MOM MAYRA LAMB, ITEMS GIVEN TO STEP MOM.
--- NOTE | 2016-06-15 22:00 | NUR ---
PT LOST REMOTE CONTROL, CONTROL FOUND AND GIVEN TO PT, ASSISTED PT WITH FINDING TV CHANNEL OF CHOICE, VSS.
--- NOTE | 2016-06-15 23:30 | NUR ---
REASSESSMENT COMPLETED, RIGHT GROIN SHEATH REMAINS CDI, NO BLEEDING OR HEMATOMA NOTED, PT REMINDED OF NPO STATUS AT MIDNIGHT, VERBALIZES UNDERSTANDING, BP STABLE WILL CONT TO MONITOR FOR CHANGES.
[2016-06-16] VITALS (24 sets, daily range): BP systolic 97–157; BP diastolic 59–100; Ht 182.9 cm; Wt 112.4 kg
--- NOTE | 2016-06-16 01:30 | NUR ---
PT RESTING EYES CLOSED, RESP EVEN AND UNLABORED, VSS, WILL CONT TO MONITOR FOR CHANGES.
--- NOTE | 2016-06-16 03:30 | NUR ---
LAB AT FOR AM LAB DRAW.
[2016-06-16 05:32] LABS: CALCIUM 8.5 mg/dL (8.5-10.1); CARBON DIOXIDE 31.7 mmol/L (21.0-32.0); CHLORIDE - SERUM 102 mmol/L (98-107); SODIUM 135 mmol/L (136-145); UREA NITROGEN 10 mg/dL (7-18); eGFR NON AFRICAN AMERICAN 82 mL/min (90-120)
[2016-06-16 05:34] LABS: CALC OSMOLALITY 275 mosm/kg (275-300); GLUCOSE 229 mg/dL (74-106); POTASSIUM - SERUM 4.7 mmol/L (3.5-5.1)
--- NOTE | 2016-06-16 06:00 | NUR ---
NO VISITORS IN AT THIS TIME
--- NOTE | 2016-06-16 06:40 | NUR ---
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
--- NOTE | 2016-06-16 08:00 | NUR ---
SHIFT ASSESSMENT VIA FLOWSHEET, SEE FOR DETAILS.
--- NOTE | 2016-06-16 10:59 | OP ---
PATIENT NAME: DEEJAY LAMB MEDICAL RECORD: [id number] :56 [facility]ATION[facility] ADMISSION DATE:06/15/16 SURGEON: CLARKE DONG M.D. DATE OF OPERATION: 06/15/2016 PROCEDURES PERFORMED: 1. Selective coronary angiography. 2. PTCA of the circumflex. 3. Attempted PTCA of the right coronary artery. INDICATION: A 55-year-old gentleman presents with acute inferior wall myocardial infarction. EQUIPMENT USED: A 6-Yemeni XB LAD guide, Whisper wire, 2.5 x 20 mm Webb balloon, AR1 guide. TECHNIQUE: A 6-Yemeni sheath was inserted in retrograde fashion in the right common femoral artery. Next, selective coronary angiography was performed in standard 5-Yemeni JL4 and Param right. CORONARY ANATOMY: 1. Left main: Left main trunk is moderate in caliber. It gives rise to the LAD and circumflex. It has no obstruction. 2. LAD: This is a large caliber vessel extending to the apex. It has mild irregularities throughout its course, but nothing more than 20%. 3. Circumflex: This vessel is quite large in caliber. The mid vessel has been stented. Stents 100% occluded. 4. Right coronary artery: This vessel is moderate in caliber. The mid vessel has been stented. The vessel is 100% occluded in the proximal segment. DESCRIPTION OF INTERVENTION: At this point, the patient stated he had not taken his Plavix as he was discharged home. Both stents, both the circumflex and right coronary artery. Both territories were infarcting. At this point, a 6-Yemeni AR1 guide was placed into the right coronary artery. It appear there was a dissection plane above the stent. Despite multiple attempts with a Whisper, Choice, and BMW guidewire, a wire would not traverse the dissected plane and through the stent. At this point, a 6-Yemeni XB LAD guide was advanced and engaged in the left main coronary artery. Next, a Whisper guidewire was used to traverse to the occluded circumflex stent. It was then predilated with a 2.5 x 20 mm Webb balloon at 14 atmospheres. Multiple inflations performed throughout the stent. At this point, there was brisk flow to the distal vessel. There is no evidence of any further thrombus after balloon dilation. There appeared to be rich collaterals filling the distal right coronary artery from the circumflex. A 100 units per kilogram heparin was infused during the case. The patient did require defibrillation twice during the case as he developed ventricular fibrillation. He responded both times to 300 joules. He was able to maintaining his airway and was conscious throughout the procedure. At the end the case, the patient had HIEN 3 flow, he was started on Integrilin drip. IMPRESSION: 1. Successful percutaneous transluminal coronary angioplasty of the circumflex for 100% occlusion of the circumflex which is likely acute thrombosis. 2. Right coronary artery could not be traversed secondary to what appeared to OPERATIVE REPORT [id number] ADONISDEEJAY RODRÍGUEZ be a spiral dissection above the stent. RECOMMENDATIONS: At this point, we will place on Integrilin overnight. I may bring him back to boot and shoe laborer tomorrow to review results of right coronary artery. The dissection plane is tacked up. We may try a PTCA at that point. TRANSINT:[id number] Voice Confirmation ID: [id number] DOCUMENT ID: [id number] CLARKE DONG M.D. at 1059 CC: [id number] DICTATION DATE: 06/15/16 1423 SUPERVISOR CUTTING AND BONING: 06/16/16 0057 [facility] [address] [place] [address]
--- NOTE | 2016-06-16 11:30 | NUR ---
REASSESSMENT VIA FLOWSHEET, SEE FOR DETAILS.
--- NOTE | 2016-06-16 13:55 | NUR ---
SUZANNE HERE TO PULL RIGHT GROIN SHEATH.
--- NOTE | 2016-06-16 14:16 | NUR ---
SHEATH REMOVAL COMPLETE, CATH TIP INTACT. RIGHT GROIN WITHOUT SIGNS OF BLEEDING OR HEMATOMA.
--- NOTE | 2016-06-16 15:30 | NUR ---
REASSESSMENT VIA FLOWSHEET, SEE FOR DETAILS.
--- NOTE | 2016-06-16 16:00 | NUR ---
Patient Name: DEEJAY LAMB Admission Status: ER Accout number: [id number] Admission Date: 06-15-2016 : 1960 Admission Diagnosis: Attending: OWEN Current LOS: 1 Anticipated DC Date: 06-20-2016 Planned Disposition: Home Primary Insurance: MEDICARE A & B Discharge Planning Comments: CM MET WITH PATIENT REGARDING D/C NEEDS AND PLANS. PATIENT STATED HE LIVES ALONE AND HIS STEPMOM (MAYRA) WILL DRIVE HIM HOME AT DISCHARGE. PATIENT STATED THERE ARE 4 STEPS W/RAILS TO ENTER HOME AND NO STAIRS INSIDE. PATIENT STATED HE IS INDEPENDENT WITH HIS CARE AND HAS A WALKER, CANE, AND IS GOING TO PURCHASE A GLUCOMETER WHEN DISCHARGED. PATIENTS PCP IS DR. CUNNINGHAM AND PHARMACY IS [facility] ON [facility]. PATIENT DOES NOT WANT HOME HEALTH AT DISCHARGE. CM WILL CONTINUE TO FOLLOW PATIENT WITH D/C NEEDS AND PLANS. PCP DR. CUNNINGHAM [facility] ON [address]- [phone] MAYRA ADONIS (STEPMOM) [phone] Data Processing Control Clerk: Sherin Jenkins Is the patient Alert and Oriented? Yes 0 * How many steps to enter\exit or inside your home? 4 W/RAILS 0 * PCP DR. CUNNINGHAM 0 * Pharmacy [facility] ON [address] [phone] 0 * Preadmission Environment Home Alone 0 * ADLs Independent 0 * Equipment Cane Walker 0 * Other Equipment PATIENT WAS SUPPOSE TO GET GLUCOMETER AND HAS NOT YET. CM EXPLAINED [employer] [facility] [employer] HAS SOME INEXPENSIVE ONES. PATIENT STATED HE WOULD GET ONE. 0 * List name and contact numbers for known caregivers / representatives who currently or will assist patient after discharge: MAYRA ADONIS (STEP MOM) [phone] * Community resources currently utilized None 0 * Additional services required to return to the preadmission environment? Yes 0 * Can the patient safely return to the preadmission environment? Yes 0 * Has this patient been hospitalized within the prior 30 days at any hospital? Yes 0 Grand Total: 0
--- NOTE | 2016-06-16 16:00 | NUR ---
POST SHEATH BEDREST COMPLETE, SITE REMAINS FREE OF BRUSING, SWELLING OR HEMATOMA. PEDAL PULSES VIA DOPPLER. PT VOICES NO COMPLAINTS AT THIS TIME. CALL LIGHT WITHIN REACH.
--- NOTE | 2016-06-16 18:00 | NUR ---
NO VISITORS AT THIS TIME, VSS.
--- NOTE | 2016-06-16 19:35 | NUR ---
REC'D PT RESTING IN BED ON ROOM AIR, AWAKE, ALERT, ORIENTED X 4, RIGHT A/C PIV SALINE LOCKED, CM-SR @ 78, RIGHT GROIN DRSG CDI, NO BLEEDING OR HEMATOMA NOTED, DIEHL PATENT DRAINING YELLOW URINE, PP BY DOPPLER, PT DENIES PAIN OR OTHER NEEDS.
--- NOTE | 2016-06-16 19:50 | NUR ---
FAMILY @ BS VISITING WITH PATIENT, PT DENIES NEEDS.
--- NOTE | 2016-06-16 20:15 | NUR ---
PT REQUESTING SNACK, POPSICLE PROVIDED
--- NOTE | 2016-06-16 20:45 | NUR ---
EVENING MEDS GIVEN, ICE WATER PROVIDED, PT DENIES PAIN, VSS, WILL CONT TO MONITOR FOR CHANGES.
--- NOTE | 2016-06-16 22:30 | NUR ---
PT COMPLAINS OF BEING COLD, WARM BLANKET PROVIDED.
--- NOTE | 2016-06-16 23:30 | NUR ---
REASSESSMENT COMPLETED, RIGHT GROIN DRSG REMAINS CDI, NO BLEEDING OR HEMATOMA, RIGHT A/C PIV SALINE LOCKED, NO REDNESS OR SWELLING, VSS, WILL CONT TO MONITOR FOR CHANGES.
[2016-06-17] VITALS (13 sets, daily range): BP systolic 113–145; BP diastolic 69–95
--- NOTE | 2016-06-17 01:30 | NUR ---
NO CHANGES IN STATUS AT THIS TIME
--- NOTE | 2016-06-17 03:30 | NUR ---
REASSESSMENT COMPLETED, NO CHANGES FROM PREVIOUS ASSESSMENT, VSS, SR UP X 2, CALL LIGHT IN REACH.
--- NOTE | 2016-06-17 06:00 | NUR ---
NO VISITORS IN AT THIS TIME, PT RESTING EYES CLOSED, RESP EVEN AND UNLABORED, WILL CONT TO MONITOR FOR CHANGES.
--- NOTE | 2016-06-17 08:29 | NUR ---
DR DONG BY TO SEE PATIENT. ASKED FOR PT BE TRANSFERED TO PCU.
--- NOTE | 2016-06-17 11:28 | NUR ---
Patient Name: DEEJAY LAMB Encounter No: [id number] : 1960 Primary Insurance: MEDICARE A & B Anticipated DC Date: 06-20-2016 Planned Disposition: Home External Planned Provider: : DAVID follow-up note: Patient and family in agreement with discharge plan. Patient to return home. Patient repots that he is not able to afford Plavix and did not get his rx filled last dc. Cm provided him with a discount card for [facility] and his monthly cost will be 9.83 at [employer]. He stated he could afford this and will use [facility]. Cm provided him with 10 discount coupons to ensure he can get this medication at this cost. CM provided him with a member card for [facility] that he can use for all his medications to see if they could be cheaper for him. Patient denied further discharge needs at this time. Case management will follow and assist as needed. Nereyda Horowitz RN, [facility] [phone]
--- NOTE | 2016-06-17 11:53 | NUR ---
Lunch tray provided. Pt sitting up eating. Awaiting PCU bed.
--- NOTE | 2016-06-17 14:45 | NUR ---
TRANSFER FROM CVICU BY W/Delphine ESPAÑA TO ROOM. CALL LIGHT IN REACH. WILL CONT. PLAN OF CARE.
--- NOTE | 2016-06-17 20:15 | NUR ---
PT RESTING IN BED WITH NO DISTRESS. SALINE LOCK TO LEFT A/C. SCDS IN PLACE O2 @ 2L/NC. SR PER TELEMETRY. CPOC. SEE SHIFT ASSESSMENT.
[2016-06-18 00:56] VITALS: BP 130/81
[2016-06-18 04:00] VITALS: BP 102/71
--- NOTE | 2016-06-18 07:30 | NUR ---
RESTING QUIETLY EYES CLOSED RESP UNLABORED NAD NOTED
[2016-06-18 09:30] VITALS: BP 106/73
[2016-06-18] MEDS ORDERED: LISINOPRIL2.5 MG PO (12:24)
[2016-06-18] MEDS ORDERED: COREG 3.1253.125 MG PO (12:25)
--- NOTE | 2016-06-18 14:00 | NUR ---
REVIEWED DISCHARGE INSTRUCTIONS AND MEDS WITH PT EXPLAINED 2 NEW MEDS CALLED TO [facility] PER PT REQUEST AND HE WAS TO CONTINUE PREVIOUS MEDS PT STATED HE DID NOT HAVE ANY MEDS AT HOME DID NOT HAVE ANY MEDS FROM LAST VISIT EXPLAINED TO PT WE WOULD RECHECK FOR HIM AND LEFT ROOM. CALL PLACED BY ÁNGEL GONSALEZMACHINE OPERATOR SLITTER TECHNICIANDECORATIVE CUTTING MACHINE TENDER TO [facility] ON [facility] WAS INFORMED PT HAD RXs FOR ALL HOME MEDS PT HAD NOT PICKED UP
--- NOTE | 2016-06-18 14:30 | NUR ---
EXPLAINED TO PT ALL DISCHARGE MEDS FROM PREVIOUS DISCHARGE WERE AT [facility] ON [address] READY TO BE PICKED UP AND HAD BEEN SINCE DATE OF LAST DISCHARGE LISINOPRIL AND PLAVIX CALLED TO [facility]. ENPHASIZED IMPORTANCE OF NOT TAKING PRESCRIBED MEDS AND TO PLZ FOLLOW UP WITH DR CUNNINGHAM CALL ON MONDAY FOR APPT LUHT WITH DR FERREIRA PT AND FAMILY STATES UNDERSTANDING
[2016-06-18 16:11] VITALS: BP 104/71
--- NOTE | 2016-06-20 14:16 | EC ---
PATIENT:DEEJAY LAMB DATE OF SERVICE: 06/15/16 SEX: M MEDICAL RECORD: [id number] DATE OF : [birth year] LOCATION:D. D.211 AGE OF PATIENT: 55 ADMISSION DATE: 06/15/16 REFERRING PHYSICIAN: INTERPRETING PHYSICIAN: CLARKE LOPEZ M.D. ECHOCARDIOGRAM REPORT ECHO CHARGES 4 ECHO COMPLETE CLINICAL DIAGNOSIS: INFERIOR OR ECHOCARDIOGRAPHIC MEASUREMENTS (adult normal given) AC root (d.<3.7cm) 3.7 LV Septum d (<1.2 cm> 1.5 Valve Excursion 2.3 LV Septum (systole) 1.7 Left Atria (s.<4.0cm> 4.1 LVPW d(<1.2cm) 1.0 RV (d.<2.3cm) 3.2 LVPW (sytole) 1.5 LV diastole(<5.6CM) 5.0 MV E-F(>70mm/sec) LV systole 3.6 LVOT Diameter 2.0 MV exc.(>10mm) 1.5 Est.ejection fraction (50-75%) Pericardial Effusion N DOPPLER: LVIT A 96.0 E 67.0 LA RVSP 24 LVOT 103 AOP1/2T Asc. Ao 140 RVOT 97 RA PA 107 AV Gradient Peak 7.80 AV Mean 3.92 AV Area 2.6 MV Gradient Peak 3.29 MV Mean 1.21 MV Area COMMENTS: Linux Network Administrator: Uriah IZQUIERDO Director Retirement:2 Dr. Lopez TAPE# PACS DATE OF SERVICE: 06/16/2016 INDICATION: Status post inferior wall OR. DESCRIPTION: Left ventricle demonstrates left ventricular hypertrophy. There is mild LV dysfunction noted. His ejection fraction is in the order of 45%-50%. Mitral valve is structurally normal. There is mild regurgitation seen. Left atrium is mildly dilated. The aortic valve is trileaflet. There is no stenosis or regurgitation seen. Right ventricle is mildly dilated. Tricuspid valve is structurally normal. There is mild regurgitation noted. Right atrium is normal ECHOCARDIOGRAM REPORT [id number] DEEJAY LAMB size. There is no pericardial effusion seen. IMPRESSION: 1. Left ventricular hypertrophy with mild left ventricular dysfunction with ejection fraction of 45%-50%. 2. Mild mitral regurgitation. 3. Mild tricuspid regurgitation. TRANSINT:[id number] Voice Confirmation ID: [id number] DOCUMENT ID: [id number] CLARKE LOPEZ M.D. at 1416 CC: [id number] DICTATION DATE: 06/17/16 1018 BOOK COVERER: 06/17/16 1059 DIS IN 06/18/16 [place] [id number] [place] [phone]
== END 2016-06-18 14:30 | disposition home or self-care (01) | DRG 250 ==
LOC: D.CVICU 12:52 → D.ER 12:52 → D.CVICU 15:11 → D.ER 15:12 → D.CVICU 15:12 → D.M2 06-17 14:44
PROVIDERS: Emergency Medicine; ADMIT Internal Medicine Cardiovascular Disease
PROC: 4A023N7 Measurement of Cardiac Sampling and Pressure, Left Heart, Percutaneous Approach (ICD-10-PCS; 2016-06-15)
PROC: B2111ZZ Fluoroscopy of Multiple Coronary Arteries using Low Osmolar Contrast (ICD-10-PCS; 2016-06-15)
PROC: 0T9B70Z Drainage of Bladder with Drainage Device, Via Natural or Artificial Opening (ICD-10-PCS; principal; 2016-06-15 14:30)
PROC: 02713ZZ Dilation of Coronary Artery, Two Arteries, Percutaneous Approach (ICD-10-PCS; 2016-06-15 14:30)
DX: I21.19 ST elevation (STEMI) myocardial infarction involving other coronary artery of inferior wall (principal); I49.01 Ventricular fibrillation; T82.855A Stenosis of coronary artery stent, initial encounter; I25.10 Atherosclerotic heart disease of native coronary artery without angina pectoris; I10 Essential (primary) hypertension; E11.9 Type 2 diabetes mellitus without complications; Y83.8 Other surgical procedures as the cause of abnormal reaction of the patient, or of later complication, without mention of misadventure at the time of the procedure